=== PATIENT | male | born 1955 | race Caucasian/White ===

== ENCOUNTER 2020-05-28 06:49 | Outpatient (REF) | payer MEDICARE, SELFPAY | END 2020-05-28 06:50 | disposition home or self-care (01) | LOC: HO.LAB 06:49 | PROVIDERS: Visit Provider Internal Medicine | DX: Z20.828 Contact with and (suspected) exposure to other viral communicable diseases (principal) | CPT/HCPCS: C9803; U0003 ==

== ENCOUNTER 2020-09-24 08:22 | Emergency (ER) | payer MEDICARE, SELFPAY ==
--- NOTE | ~2020-09-24 | CT_ITS ---
EXAMINATION: CT ABDOMEN AND PELVIS WITHOUT CONTRAST CLINICAL INFORMATION: Gross hematuria and abdominal pain COMPARISON: None TECHNIQUE: Multidetector volumetric imaging was performed from the superior aspect of the liver through the pubic symphysis. Sagittal and coronal reformatted images were obtained on the technologist's workstation. This CT examination was performed using dose optimization techniques as appropriate, variously including the following: *Automated exposure control *Adjustment of mA and/or kV according to patient size (this includes techniques or standardized protocols for targeted exams where dose is matched to indication/reason for exam; i.e. extremities or head) *Use of iterative reconstruction technique DLP: 402 mGy-cm FINDINGS: LUNG BASES: The visualized lung bases are unremarkable. LIVER, GALLBLADDER, AND BILIARY TREE: The liver is normal in size, shape, and attenuation. There is a 8 mm low-attenuation lesion in the posterior segment of the right lobe of the liver axial image 19 series 3. This is difficult due to small size and lack of contrast. No other focal hepatic lesion or biliary ductal dilatation is present. The gallbladder is unremarkable with no evidence of radiopaque gallstones, gallbladder wall thickening, or obvious pericholecystic inflammatory changes. PANCREAS: Unremarkable. SPLEEN: There are calcifications in the spleen suggestive of old granulomatous disease. ADRENAL GLANDS: Unremarkable. KIDNEYS AND URETERS: The kidneys are normal in size, shape, and attenuation. No hydronephrosis, hydroureter, or calculi seen. There is slight abnormal contour to the posterior mid pole of the left kidney. This is slightly high in attenuation for example axial image 29 series 3 and sagittal reconstructed image 24. No perinephric stranding. BLADDER: The prostate gland is enlarged and protrudes into the base of the bladder. The bladder is otherwise unremarkable. GASTROINTESTINAL TRACT: The small and large bowel are unremarkable. The appendix is unremarkable. ABDOMINAL WALL: No significant hernia is appreciated. LYMPH NODES: Normal. VASCULAR: Unremarkable. PELVIC VISCERA: The prostate gland is enlarged and protrudes into the base of the bladder. The prostate gland measures 4.5 x 5.5 cm in AP and transverse dimension. OSSEOUS STRUCTURES: There are degenerative changes of the spine. There is small nonspecific bone lesions, largest measuring 8 mm in the left side of the sacrum. CT/CT abdomen pelvis wo con IMPRESSION: Enlarged prostate gland that protrudes into the base of the bladder. No renal or ureteral stone seen. Slight abnormal contour and increased attenuation in the posterior mid pole of the left kidney. This could be better evaluated with CT or MRI with and without contrast if clinically indicated. Small liver lesion difficult to characterize due to small size and lack of IV contrast..
[2020-09-24 08:44] VITALS: BP 140/84; PULSE 58; RESP 16; TEMP 36.1; O2SAT 100; BMI 22.1
[2020-09-24 09:19] LABS: Glucose Urine UA NEG (NEG); Leukocyte Esterase Urine NEG (NEG); Nitrite Urine NEG (NEG); Specific Gravity - Urine 1.025 (1.005-1.025); Urine Blood 2+ (NEG); Urine Ketones NEG (NEG); Urine Protein NEG (NEG-TRACE)
[2020-09-24 09:30] LABS: Appearance Urine CLEAR; Color Urine YELLOW
[2020-09-24 09:36] LABS: Mucus Urine 1+ /LPF; Squamous Epithelial Cell Urine 1+ /LPF; WBC Urine 0 /HPF (0-4)
--- NOTE | 2020-09-24 10:00 | ECG_ITS ---
Test Reason : BRADYCARDIA Blood Pressure : / mmHG Vent. Rate : 049 BPM Atrial Rate : 049 BPM P-R Int : 142 ms QRS Dur : 090 ms QT Int : 464 ms P-R-T Axes : 064 012 043 degrees QTc Int : 419 ms Sinus bradycardia with Premature atrial complexes Possible Left atrial enlargement Borderline ECG No previous ECGs available Referred By: Pauly Kelsey Electronically Signed By:TAMY NORMAN MD
--- NOTE | 2020-09-24 10:07 | ED.MALEGU ---
HPI - Male Genitourinary General Chief complaint: Urogenital-Male <CASEY Sosa - Last Filed: 09/24/20 13:55> Stated complaint: blood in urine <CASEY Sosa Last Filed: 09/24/20 13:55> Time Seen by Provider: 09/24/20 09:45 <CASEY Sosa - Last Filed: 09/24/20 13:55> Source: patient <CASEY Sosa Last Filed: 09/24/20 13:55> Mode of arrival: ambulatory <CASEY Sosa Last Filed: 09/24/20 13:55> Limitations: no limitations <CASEY Sosa Last Filed: 09/24/20 13:55> History of Present Illness HPI Narrative: 65 y/o male with no significant medical history presents with 4 days of hematuria. He reports it is mostly painfree but at times is uncomfortable to pass his urine. He admits to increased urinary frequency and passing some small clots. He has some intermittent lower abdominal discomfort. No back pain, no fever, no chills. He is not on anticoagulation and he has never had this before. He is a never smoker. <CASEY Sosa - Last Filed: 09/24/20 13:55> MD Complaint: other (hematuria) <CASEY Sosa - Last Filed: 09/24/20 13:55> Onset (ago): day(s) (4) <CASEY Sosa Last Filed: 09/24/20 13:55> Duration: constant <CASEY Sosa Last Filed: 09/24/20 13:55> Location: abdomen (lower ) <CASEY Sosa Last Filed: 09/24/20 13:55> Severity: moderate <CASEY Sosa Last Filed: 09/24/20 13:55> Quality: aching <CASEY Sosa Last Filed: 09/24/20 13:55> Relieving factors: none <CASEY Sosa Last Filed: 09/24/20 13:55> Exacerbating factors: urination <CASEY Sosa Last Filed: 09/24/20 13:55> Associated symptoms: Reports blood in urine <CASEY Sosa Last Filed: 09/24/20 13:55> Related Data Sexually active: No <CASEY Sosa Last Filed: 09/24/20 13:55> Home medications: Previous Rx's Medication Instructions Recorded nitrofurantoin monohyd/m-cryst 100 mg PO BID 7 Days #14 cap 09/24/20 [Macrobid] <CASEY Sosa Last Filed: 09/24/20 13:55> Allergies/Adverse reactions: Allergies Allergy/AdvReac Type Severity Reaction Status Date / Time No Known Allergies Allergy Verified 09/24/20 08:48 [No Known Allergies*] <CASEY Sosa Last Filed: 09/24/20 13:55> Review of Systems Review of Systems: Constitutional: No Fever, No Chills Cardiovascular: No Chest Pain, No SOB, No Orthopnea, No Edema Respiratory: No Cough, No Sputum, No Wheezing, No dyspnea Gastrointestinal: No Nausea, No Vomiting, No Diarrhea, + abdominal Pain, No Hematochezia, No Melena Genitourinary: No Dysuria, + Urinary Frequency, + Hematuria Musculoskeletal: No joint pain, No Myalgias Skin: No Skin Lesions, No rash Neuro: No Weakness, No Numbness, No Dizziness, No Headache Psych: No Anxiety/Panic, No Depression Heme/Lymph: No Bruising, No Lymphadenopathy Endocrine: No Polyuria, No Polydipsia <CASEY Sosa Last Filed: 09/24/20 13:55> [facility] Past Medical History Medical History: Medical History (Updated 09/25/20 @ 00:01 by Kristal Manuel) Stroke due to embolism <CASEY Sosa Last Filed: 09/24/20 13:55> Surgical History: Surgical History (Updated 09/24/20 @ 08:47 by Lilly Zaman) Hx of brain surgery <CASEY Sosa Last Filed: 09/24/20 13:55> Physical Exam Vital Signs: Vital Signs: Last Vital Signs Temp 98.3 F 09/24/20 12:00 Pulse 74 09/24/20 12:00 Resp 18 09/24/20 12:00 BP 139/68 09/24/20 12:00 Pulse Ox 98 09/24/20 12:00 Body Mass Index 22.1 Appearance: Alert. Oriented X3. No acute distress. Eyes: Pupils equal, round and reactive to light. ENT: Pharynx normal. Neck: Normal inspection. Neck supple. CVS: Bradycardic, regular rhythm. Pulses normal. Respiratory: No respiratory distress. Breath sounds normal. Abdomen: Soft with mild suprapubic tenderness. +BS x4 Skin: Skin warm and dry. Normal skin color. Normal skin turgor. No rashes. Extremities: No lower extremity edema. Neuro: Oriented X 3. No motor deficit. No sensory deficit. <CASEY Sosa - Last Filed: 09/24/20 13:55> Vital Signs: Last Vital Signs Temp 98.3 F 09/24/20 12:00 Pulse 74 09/24/20 12:00 Resp 18 09/24/20 12:00 BP 139/68 09/24/20 12:00 Pulse Ox 98 09/24/20 12:00 Body Mass Index 22.1 <Cam Medrano MD - Last Filed: 10/09/20 07:30> Course Course Course Narrative: 65 y/o male presenting with hematuria x4 days. No medical history. Low suspicion for kidney stones given lack of pain. Mild dysuria occasionally is consistent with UTI. UA negative for gross infection. He has some tenderness on examination. His urine is cloudy but no gross hematuria or clots. Will get labs and CT scan for further evaluation. HR 40's when placed on the monitor - sinus bradycardic with PACs. patient is asymptomatic with stable blood pressures. <CASEY Sosa - Last Filed: 09/24/20 13:55> I have reviewed the chart <Cam Medrano MD - Last Filed: 10/09/20 07:30> Reevaluation(s) Reevaluation #1: Labs are unremarkable. Urine showing blood but no obvious infection. CT scan pending. <CASEY Sosa - Last Filed: 09/24/20 13:55> Reevaluation #2: CT scan showing enlarged prostate protruding into the bladder. No kidney stones. Abnormal coutour of mid pole of left kidney. Rec MRI vs CT w/wout contrast, this can be done as an outpatient. Will treat for cystitis and refer to Urology for further management. Patient agreeable with plan. Stable for discharge. <CASEY Sosa - Last Filed: 09/24/20 13:55> MDM - Male Genitourinary Lab Data Attestation: I reviewed the patient's lab results. <CASEY Sosa - Last Filed: 09/24/20 13:55> Result diagrams: : 09/24/20 10:31 09/24/20 10:31 <CASEY Sosa - Last Filed: 09/24/20 13:55> Labs: Lab Results 09/24/20 09/24/20 09/24/20 Range/Units 09:07 10:31 10:31 WBC 6.1 (4.8-10.8) X10*3/uL RBC 5.12 (4.60-5.80) X10*6/uL Hgb 14.8 (14.0-18.0) g/dl Hct 45.7 (42-52) % MCV 89.3 (80-98) fL MCH 28.9 (27.0-33.0) pg MCHC 32.4 (31.0-36.0) g/dl RDW 13.2 (11.0-16.0) % Plt Count 312 (160-400) X10*3/uL MPV 9.3 L (9.4-12.4) fL Immature Gran % (Auto) 0.2 (0.0-0.4) % Neut % (Auto) 51.8 (45-73) % Lymph % (Auto) 39.0 (20-40) % [place] % (Auto) 6.9 (2-11) % Eos % (Auto) 1.3 (0-4) % Baso % (Auto) 0.8 (0-2) % Lymph # (Auto) 2.4 (1.2-4.9) X10*3/uL [place] # (Auto) 0.4 (0.1-1.2) X10*3/uL Eos # (Auto) 0.1 (0.0-0.4) X10*3/uL Baso # (Auto) 0.1 (0.0-0.2) X10*3/uL Abs Immat Gran (auto) 0.01 (0.00-0.03) X10*3/uL Absolute Neuts (auto) 3.2 (2.0-8.3) X10*3/uL Absolute Nucleated RBC 0.000 (0.0-0.012) X10*3/uL Nucleated RBC % (auto) 0.0 (0.0-0.2) /100WBC PT 12.2 (10.8-13.0) SEC INR 1.0 (0.9-1.1) APTT 33.9 (24.1-38.0) SEC Sodium (135-145) mmol/L Potassium (3.3-5.1) mmol/L Chloride (96-108) mmol/L Carbon Dioxide (22-29) mmol/L Anion Gap (12-20) BUN (9-16) mg/dL Creatinine (0.5-1.4) mg/dL Estim Creat Clear Calc Estimated GFR Random Glucose (60-115) mg/dL Calcium (8.4-10.2) mg/dL Magnesium (1.6-2.6) mg/dL Total Bilirubin (0.0-1.0) mg/dL Direct Bilirubin (0.0-0.5) mg/dL AST (5-37) U/L ALT (0-40) U/L Alkaline Phosphatase (39-117) U/L Total Protein (6.5-8.0) g/dL Albumin (3.5-5.0) g/dL Urine Color YELLOW Urine Appearance CLEAR Urine pH 6.0 (5.0-8.0) Ur Specific [place] 1.025 (1.005-1.025) Urine Protein NEG (NEG-TRACE) MG/DL Urine Glucose (UA) NEG (NEG) MG/DL Urine Ketones NEG (NEG) MG/DL Urine Blood 2+ H (NEG) Urine Nitrite NEG (NEG) Ur Leukocyte Esterase NEG (NEG) Urine RBC 10-14 H (0) /HPF Urine WBC 0 (0-4) /HPF Ur Squamous Epith Cells 1+ /LPF Urine Bacteria NONE /LPF Urine Mucus 1+ /LPF 09/24/20 Range/Units 10:31 WBC (4.8-10.8) X10*3/uL RBC (4.60-5.80) X10*6/uL Hgb (14.0-18.0) g/dl Hct (42-52) % MCV (80-98) fL MCH (27.0-33.0) pg MCHC (31.0-36.0) g/dl RDW (11.0-16.0) % Plt Count (160-400) X10*3/uL MPV (9.4-12.4) fL Immature Gran % (Auto) (0.0-0.4) % Neut % (Auto) (45-73) % Lymph % (Auto) (20-40) % [place] % (Auto) (2-11) % Eos % (Auto) (0-4) % Baso % (Auto) (0-2) % Lymph # (Auto) (1.2-4.9) X10*3/uL [place] # (Auto) (0.1-1.2) X10*3/uL Eos # (Auto) (0.0-0.4) X10*3/uL Baso # (Auto) (0.0-0.2) X10*3/uL Abs Immat Gran (auto) (0.00-0.03) X10*3/uL Absolute Neuts (auto) (2.0-8.3) X10*3/uL Absolute Nucleated RBC (0.0-0.012) X10*3/uL Nucleated RBC % (auto) (0.0-0.2) /100WBC PT (10.8-13.0) SEC INR (0.9-1.1) APTT (24.1-38.0) SEC Sodium 140 (135-145) mmol/L Potassium 5.2 H (3.3-5.1) mmol/L Chloride 108 (96-108) mmol/L Carbon Dioxide 27 (22-29) mmol/L Anion Gap 10 L (12-20) BUN 14 (9-16) mg/dL Creatinine 0.92 (0.5-1.4) mg/dL Estim Creat Clear Calc 74.9 Estimated GFR > 60 Random Glucose 96 (60-115) mg/dL Calcium 9.2 (8.4-10.2) mg/dL Magnesium 2.3 (1.6-2.6) mg/dL Total Bilirubin 0.8 (0.0-1.0) mg/dL Direct Bilirubin 0.3 (0.0-0.5) mg/dL AST 22 (5-37) U/L ALT 20 (0-40) U/L Alkaline Phosphatase 76 (39-117) U/L Total Protein 7.0 (6.5-8.0) g/dL Albumin 4.1 (3.5-5.0) g/dL Urine Color Urine Appearance Urine pH (5.0-8.0) Ur Specific [place] (1.005-1.025) Urine Protein (NEG-TRACE) MG/DL Urine Glucose (UA) (NEG) MG/DL Urine Ketones (NEG) MG/DL Urine Blood (NEG) Urine Nitrite (NEG) Ur Leukocyte Esterase (NEG) Urine RBC (0) /HPF Urine WBC (0-4) /HPF Ur Squamous Epith Cells /LPF Urine Bacteria /LPF Urine Mucus /LPF <CASEY Sosa - Last Filed: 09/24/20 13:55> Lab Results 09/24/20 09/24/20 09/24/20 Range/Units 09:07 10:31 10:31 WBC 6.1 (4.8-10.8) X10*3/uL RBC 5.12 (4.60-5.80) X10*6/uL Hgb 14.8 (14.0-18.0) g/dl Hct 45.7 (42-52) % MCV 89.3 (80-98) fL MCH 28.9 (27.0-33.0) pg MCHC 32.4 (31.0-36.0) g/dl RDW 13.2 (11.0-16.0) % Plt Count 312 (160-400) X10*3/uL MPV 9.3 L (9.4-12.4) fL Immature Gran % (Auto) 0.2 (0.0-0.4) % Neut % (Auto) 51.8 (45-73) % Lymph % (Auto) 39.0 (20-40) % [place] % (Auto) 6.9 (2-11) % Eos % (Auto) 1.3 (0-4) % Baso % (Auto) 0.8 (0-2) % Lymph # (Auto) 2.4 (1.2-4.9) X10*3/uL [place] # (Auto) 0.4 (0.1-1.2) X10*3/uL Eos # (Auto) 0.1 (0.0-0.4) X10*3/uL Baso # (Auto) 0.1 (0.0-0.2) X10*3/uL Abs Immat Gran (auto) 0.01 (0.00-0.03) X10*3/uL Absolute Neuts (auto) 3.2 (2.0-8.3) X10*3/uL Absolute Nucleated RBC 0.000 (0.0-0.012) X10*3/uL Nucleated RBC % (auto) 0.0 (0.0-0.2) /100WBC PT 12.2 (10.8-13.0) SEC INR 1.0 (0.9-1.1) APTT 33.9 (24.1-38.0) SEC Sodium (135-145) mmol/L Potassium (3.3-5.1) mmol/L Chloride (96-108) mmol/L Carbon Dioxide (22-29) mmol/L Anion Gap (12-20) BUN (9-16) mg/dL Creatinine (0.5-1.4) mg/dL Estim Creat Clear Calc Estimated GFR Random Glucose (60-115) mg/dL Calcium (8.4-10.2) mg/dL Magnesium (1.6-2.6) mg/dL Total Bilirubin (0.0-1.0) mg/dL Direct Bilirubin (0.0-0.5) mg/dL AST (5-37) U/L ALT (0-40) U/L Alkaline Phosphatase (39-117) U/L Total Protein (6.5-8.0) g/dL Albumin (3.5-5.0) g/dL Urine Color YELLOW Urine Appearance CLEAR Urine pH 6.0 (5.0-8.0) Ur Specific [place] 1.025 (1.005-1.025) Urine Protein NEG (NEG-TRACE) MG/DL Urine Glucose (UA) NEG (NEG) MG/DL Urine Ketones NEG (NEG) MG/DL Urine Blood 2+ H (NEG) Urine Nitrite NEG (NEG) Ur Leukocyte Esterase NEG (NEG) Urine RBC 10-14 H (0) /HPF Urine WBC 0 (0-4) /HPF Ur Squamous Epith Cells 1+ /LPF Urine Bacteria NONE /LPF Urine Mucus 1+ /LPF 09/24/20 Range/Units 10:31 WBC (4.8-10.8) X10*3/uL RBC (4.60-5.80) X10*6/uL Hgb (14.0-18.0) g/dl Hct (42-52) % MCV (80-98) fL MCH (27.0-33.0) pg MCHC (31.0-36.0) g/dl RDW (11.0-16.0) % Plt Count (160-400) X10*3/uL MPV (9.4-12.4) fL Immature Gran % (Auto) (0.0-0.4) % Neut % (Auto) (45-73) % Lymph % (Auto) (20-40) % [place] % (Auto) (2-11) % Eos % (Auto) (0-4) % Baso % (Auto) (0-2) % Lymph # (Auto) (1.2-4.9) X10*3/uL [place] # (Auto) (0.1-1.2) X10*3/uL Eos # (Auto) (0.0-0.4) X10*3/uL Baso # (Auto) (0.0-0.2) X10*3/uL Abs Immat Gran (auto) (0.00-0.03) X10*3/uL Absolute Neuts (auto) (2.0-8.3) X10*3/uL Absolute Nucleated RBC (0.0-0.012) X10*3/uL Nucleated RBC % (auto) (0.0-0.2) /100WBC PT (10.8-13.0) SEC INR (0.9-1.1) APTT (24.1-38.0) SEC Sodium 140 (135-145) mmol/L Potassium 5.2 H (3.3-5.1) mmol/L Chloride 108 (96-108) mmol/L Carbon Dioxide 27 (22-29) mmol/L Anion Gap 10 L (12-20) BUN 14 (9-16) mg/dL Creatinine 0.92 (0.5-1.4) mg/dL Estim Creat Clear Calc 74.9 Estimated GFR > 60 Random Glucose 96 (60-115) mg/dL Calcium 9.2 (8.4-10.2) mg/dL Magnesium 2.3 (1.6-2.6) mg/dL Total Bilirubin 0.8 (0.0-1.0) mg/dL Direct Bilirubin 0.3 (0.0-0.5) mg/dL AST 22 (5-37) U/L ALT 20 (0-40) U/L Alkaline Phosphatase 76 (39-117) U/L Total Protein 7.0 (6.5-8.0) g/dL Albumin 4.1 (3.5-5.0) g/dL Urine Color Urine Appearance Urine pH (5.0-8.0) Ur Specific [place] (1.005-1.025) Urine Protein (NEG-TRACE) MG/DL Urine Glucose (UA) (NEG) MG/DL Urine Ketones (NEG) MG/DL Urine Blood (NEG) Urine Nitrite (NEG) Ur Leukocyte Esterase (NEG) Urine RBC (0) /HPF Urine WBC (0-4) /HPF Ur Squamous Epith Cells /LPF Urine Bacteria /LPF Urine Mucus /LPF <Cam Medrano MD - Last Filed: 10/09/20 07:30> ECG Data Attestation: I personally reviewed and interpreted this ECG as follows: <CASEY Sosa - Last Filed: 09/24/20 13:55> ECG interpretation date: 09/24/20 <CASEY Sosa - Last Filed: 09/24/20 13:55> ECG interpretation time: 12:53 <CASEY Sosa - Last Filed: 09/24/20 13:55> Interpretation: sinus bradycardia with premature atrial complexes, HR 49 bpm, normal SC Interval, normal QTc <CASEY Sosa - Last Filed: 09/24/20 13:55> Discharge Plan Discharge Clinical Impression: Cystitis, Enlarged prostate <CASEY Sosa - Last Filed: 09/24/20 13:55> Patient Disposition: Home, Self-Care <CASEY Sosa - Last Filed: 09/24/20 13:55> Instructions: Interstitial Cystitis (ED) <CASEY Sosa - Last Filed: 09/24/20 13:55> Additional Instructions: Your urine test showed blood in your urine which is consistent with inflammation of your bladder. Your lab workup was unremarkable. Your CT scan showed an enlarged prostate and abnormal contour of your left kidney. You will need follow up with Urology for these issues. Your may require further imaging in the future. Take the prescribed antibiotic as directed for 1 week to help treat the inflammation of your bladder. If you have worsening symptoms or develop inability to urinate or any other concerning symptom come back to the ER for further evaluation. <CASEY Sosa - Last Filed: 09/24/20 13:55> Prescriptions: New nitrofurantoin monohyd/m-cryst [Macrobid] 100 mg capsule 100 mg PO BID 7 Days Qty: 14 RF: 0 <CASEY Sosa - Last Filed: 09/24/20 13:55> Referrals: Andrea Rodriguez MD [Physician] - 2 days (enlarged prostate, hematuria) <CASEY Sosa - Last Filed: 09/24/20 13:55> Interventions: ED Discharge Assessment Last Done: 09/24/20 13:17 <CASEY Sosa - Last Filed: 09/24/20 13:55> Discharge Date/Time: 09/24/20 13:18 <CASEY Sosa - Last Filed: 09/24/20 13:55> Print Language: Kazakh <CASEY Sosa - Last Filed: 09/24/20 13:55>
[2020-09-24] MEDS: 0.9 % Sodium Chloride 1,000 ML 999 ML IVCONT (10:50)
[2020-09-24 11:06] LABS: MANUAL DIFF FLAG NO
[2020-09-24 11:08] LABS: Basophils Absolute Auto 0.1 X10*3/uL (0.0-0.2); Basophils Percent Auto 0.8 % (0-2); Eosinophils Absolute Auto 0.1 X10*3/uL (0.0-0.4); Eosinophils Percent Auto 1.3 % (0-4); Hematocrit 45.7 % (42-52); Hemoglobin 14.8 g/dl (14.0-18.0); Imm Gran Abs Auto 0.01 X10*3/uL (0.00-0.03); Imm Gran Pct Auto 0.2 % (0.0-0.4); Lymphocytes Absolute Auto 2.4 X10*3/uL (1.2-4.9); Mean Corpuscular HGB Conc 32.4 g/dl (31.0-36.0); Mean Corpuscular Hemoglobin 28.9 pg (27.0-33.0); Mean Corpuscular Volume 89.3 fL (80-98); Mean Platelet Volume 9.3 fL (9.4-12.4); Monocytes Absolute Auto 0.4 X10*3/uL (0.1-1.2); Monocytes Percent Auto 6.9 % (2-11); Neutrophils Absolute Auto 3.2 X10*3/uL (2.0-8.3); Neutrophils Percent Auto 51.8 % (45-73); Platelet Count 312 X10*3/uL (160-400); Red Blood Count 5.12 X10*6/uL (4.60-5.80); Red Cell Distribution Width 13.2 % (11.0-16.0); White Blood Count 6.1 X10*3/uL (4.8-10.8)
[2020-09-24 11:16] LABS: Prothrombin Time 12.2 SEC (10.8-13.0)
[2020-09-24 11:19] LABS: Partial Thromboplastin Time 33.9 SEC (24.1-38.0)
[2020-09-24 11:38] LABS: Alanine Aminotransferase 20 U/L (0-40); Albumin Level 4.1 g/dL (3.5-5.0); Alkaline Phosphatase 76 U/L (39-117); Anion Gap 10 (12-20); Aspartate Amino Transferase 22 U/L (5-37); Bilirubin Direct 0.3 mg/dL (0.0-0.5); Bilirubin Total 0.8 mg/dL (0.0-1.0); Blood Urea Nitrogen 14 mg/dL (9-16); Calcium 9.2 mg/dL (8.4-10.2); Carbon Dioxide 27 mmol/L (22-29); Chloride 108 mmol/L (96-108); Creatinine Clr Calc Pharmacy 74.9; Estimated Glomerular Filt Rate > 60; Glucose Random 96 mg/dL (60-115); Magnesium 2.3 mg/dL (1.6-2.6); Potassium 5.2 mmol/L (3.3-5.1); Sodium 140 mmol/L (135-145)
[2020-09-24 12:00] VITALS: BP 139/68; PULSE 74; RESP 18; TEMP 36.8; O2SAT 98
== END 2020-09-24 13:18 | disposition home or self-care (01) ==
PROVIDERS: Physician Assistant; Emergency Provider Emergency Medicine; PCP Internal Medicine
DX: N30.11 Interstitial cystitis (chronic) with hematuria (principal); N40.1 Benign prostatic hyperplasia with lower urinary tract symptoms; Z86.73 Personal history of transient ischemic attack (TIA), and cerebral infarction without residual deficits
CPT/HCPCS: 36415; 51798; 74176; 80048; 80076; 81001; 83735; 85025; 85610; 85730; 93005; 96360; 99284

== ENCOUNTER 2020-10-18 15:14 | Outpatient (REF) | payer MEDICARE, SELFPAY | END 2020-10-18 15:15 | disposition home or self-care (01) | LOC: HO.LAB 15:14 | PROVIDERS: Visit Provider Internal Medicine | DX: Z20.822 Contact with and (suspected) exposure to COVID-19 (principal) | CPT/HCPCS: C9803; U0003; U0005 ==

== ENCOUNTER 2020-10-22 06:17 | Outpatient (REF) | payer MEDICARE, SELFPAY ==
[2020-10-22 08:45] LABS: Alanine Aminotransferase 15 U/L (0-40); Albumin Level 4.1 g/dL (3.5-5.0); Alkaline Phosphatase 78 U/L (39-117); Anion Gap 10 (12-20); Aspartate Amino Transferase 18 U/L (5-37); Bilirubin Total 0.5 mg/dL (0.0-1.0); Blood Urea Nitrogen 18 mg/dL (9-16); Calcium 8.9 mg/dL (8.4-10.2); Carbon Dioxide 28 mmol/L (22-29); Chloride 108 mmol/L (96-108); Cholesterol 195 mg/dL; Estimated Glomerular Filt Rate > 60; Glucose Random 98 mg/dL (60-115); HDL Cholesterol 40 mg/dL; LDL Cholesterol Calculated 140 mg/dl; Potassium 4.4 mmol/L (3.3-5.1); Sodium 142 mmol/L (135-145); Total Protein 6.8 g/dL (6.5-8.0); Triglycerides 77 mg/dL
== END 2020-10-22 06:18 | disposition home or self-care (01) ==
LOC: HO.LAB 06:17
PROVIDERS: PCP Internal Medicine; Visit Provider Internal Medicine
DX: G40.909 Epilepsy, unspecified, not intractable, without status epilepticus (principal); I10 Essential (primary) hypertension; I62.00 Nontraumatic subdural hemorrhage, unspecified; K59.00 Constipation, unspecified; M25.562 Pain in left knee; M25.542 Pain in joints of left hand; M25.541 Pain in joints of right hand; Z86.79 Personal history of other diseases of the circulatory system
CPT/HCPCS: 36415; 80053; 80061

== ENCOUNTER → 2020-11-01 10:38 | Outpatient (BNVA) | payer MEDICARE, SELFPAY | PROVIDERS: PCP Internal Medicine; Visit Provider Urology | DX: N40.1 Benign prostatic hyperplasia with lower urinary tract symptoms (principal); N13.8 Other obstructive and reflux uropathy; N39.0 Urinary tract infection, site not specified; R39.12 Poor urinary stream | CPT/HCPCS: 81002; 99202 ==

== ENCOUNTER → 2020-12-19 13:22 | Outpatient (BNVA) | payer MEDICARE, SELFPAY | PROVIDERS: PCP Internal Medicine; Visit Provider Urology | DX: N39.0 Urinary tract infection, site not specified (principal); N40.1 Benign prostatic hyperplasia with lower urinary tract symptoms; N13.8 Other obstructive and reflux uropathy; R39.12 Poor urinary stream | CPT/HCPCS: 51798; 99212 ==

== ENCOUNTER 2021-06-06 14:45 | Outpatient (REF) | payer MEDICARE, SELFPAY ==
[2021-06-06 15:24] LABS: COVID-19 Test Negative (Negative)
== END 2021-06-06 14:46 | disposition home or self-care (01) ==
LOC: HO.LAB 14:45
PROVIDERS: Visit Provider Internal Medicine
DX: Z20.822 Contact with and (suspected) exposure to COVID-19 (principal)
CPT/HCPCS: 36415; 87635; C9803

== ENCOUNTER 2021-06-18 06:23 | Outpatient (REF) | payer MEDICARE, SELFPAY ==
[2021-06-18 08:33] LABS: PSA,Total (Free>4and<10) 1.59 ng/mL (0.00-4.00)
== END 2021-06-18 06:24 | disposition home or self-care (01) ==
LOC: HO.LAB 06:23
PROVIDERS: PCP Internal Medicine; Visit Provider Urology
DX: Z12.5 Encounter for screening for malignant neoplasm of prostate (principal); N40.1 Benign prostatic hyperplasia with lower urinary tract symptoms; N13.8 Other obstructive and reflux uropathy
CPT/HCPCS: 36415; 84153

== ENCOUNTER → 2021-06-26 08:24 | Outpatient (BNVA) | payer MEDICARE, SELFPAY | PROVIDERS: PCP Internal Medicine; Visit Provider Urology | DX: N40.1 Benign prostatic hyperplasia with lower urinary tract symptoms (principal); N13.8 Other obstructive and reflux uropathy; R39.12 Poor urinary stream | CPT/HCPCS: 99212 ==

== ENCOUNTER 2021-08-20 06:48 | Outpatient (REF) | payer MEDICARE, SELFPAY ==
[2021-08-20 07:47] LABS: Alanine Aminotransferase 15 U/L (0-40); Albumin Level 4.2 g/dL (3.5-5.0); Alkaline Phosphatase 79 U/L (39-117); Anion Gap 11 (12-20); Aspartate Amino Transferase 18 U/L (5-37); Bilirubin Total 0.6 mg/dL (0.0-1.0); Blood Urea Nitrogen 20 mg/dL (9-16); Calcium 9.5 mg/dL (8.4-10.2); Carbon Dioxide 27 mmol/L (22-29); Chloride 106 mmol/L (96-108); Cholesterol 219 mg/dL; Estimated Glomerular Filt Rate > 60; Glucose Random 100 mg/dL (60-115); HDL Cholesterol 41 mg/dL; LDL Cholesterol Calculated 162 mg/dl; Sodium 139 mmol/L (135-145); Total Protein 7.3 g/dL (6.5-8.0); Triglycerides 84 mg/dL
[2021-08-20 08:13] LABS: Prostate Specific Antigen Scr 2.75 ng/mL (<0.05-4.0)
[2021-08-20 08:25] LABS: Reflex LDLD? No
== END 2021-08-20 06:49 | disposition home or self-care (01) ==
LOC: HO.LAB 06:48
PROVIDERS: PCP Internal Medicine; Visit Provider Internal Medicine
DX: Z12.5 Encounter for screening for malignant neoplasm of prostate (principal); I10 Essential (primary) hypertension; N40.1 Benign prostatic hyperplasia with lower urinary tract symptoms; M25.569 Pain in unspecified knee; Z86.79 Personal history of other diseases of the circulatory system
CPT/HCPCS: 36415; 80053; 80061; 84153

== ENCOUNTER → 2022-06-26 08:24 | Outpatient (BNVA) | payer OTHER, SELFPAY | PROVIDERS: PCP Internal Medicine; Visit Provider Urology | DX: N39.0 Urinary tract infection, site not specified (principal); N40.1 Benign prostatic hyperplasia with lower urinary tract symptoms; N13.8 Other obstructive and reflux uropathy; R39.12 Poor urinary stream | CPT/HCPCS: 51798; 99212 ==

== ENCOUNTER → 2022-07-25 10:19 | Outpatient (BNVA) | payer OTHER, SELFPAY | PROVIDERS: PCP Internal Medicine; Visit Provider Nurse Practitioner Family | DX: Z01.818 Encounter for other preprocedural examination (principal) | CPT/HCPCS: 99202 ==

== ENCOUNTER 2022-09-08 06:32 | Outpatient (REF) | payer OTHER, SELFPAY ==
[2022-09-08 08:17] LABS: Alanine Aminotransferase 19 U/L (0-40); Albumin Level 3.9 g/dL (3.5-5.0); Alkaline Phosphatase 76 U/L (39-117); Anion Gap 10 (12-20); Aspartate Amino Transferase 20 U/L (5-37); Bilirubin Total 0.9 mg/dL (0.0-1.0); Blood Urea Nitrogen 17 mg/dL (9-16); Calcium 9.1 mg/dL (8.4-10.2); Carbon Dioxide 29 mmol/L (22-29); Chloride 106 mmol/L (96-108); Cholesterol 209 mg/dL; Estimated Glomerular Filt Rate > 60; Glucose Random 92 mg/dL (60-115); HDL Cholesterol 42 mg/dL; LDL Cholesterol Calculated 152 mg/dl; Potassium 4.6 mmol/L (3.3-5.1); Sodium 140 mmol/L (135-145); Total Protein 6.7 g/dL (6.5-8.0); Triglycerides 77 mg/dL
[2022-09-08 08:35] LABS: Prostate Specific Antigen 1.61 ng/mL (<0.05-4.0)
[2022-09-08 08:57] LABS: Estimated Average Glucose 103 mg/dL; Hemoglobin A1c % 5.2 %
[2022-09-08 14:02] LABS: Reflex LDLD? No
== END 2022-09-08 06:33 | disposition home or self-care (01) ==
LOC: HO.LAB 06:32
PROVIDERS: PCP Internal Medicine; Visit Provider Internal Medicine
DX: Z12.5 Encounter for screening for malignant neoplasm of prostate (principal); E78.5 Hyperlipidemia, unspecified; G40.909 Epilepsy, unspecified, not intractable, without status epilepticus; I10 Essential (primary) hypertension; R97.20 Elevated prostate specific antigen [PSA]; R73.9 Hyperglycemia, unspecified
CPT/HCPCS: 36415; 80053; 80061; 83036; 84153

== ENCOUNTER 2023-01-07 07:01 | Outpatient (REF) | payer OTHER, SELFPAY ==
--- NOTE | ~2023-01-07 | XR_ITS ---
EXAMINATION: XR THORACIC SPINE CLINICAL INFORMATION: Pain back COMPARISON: None available. TECHNIQUE: 3 views of the thoracic spine were obtained. FINDINGS: Mild multilevel degenerative changes in the thoracic spine. No thoracic vertebral body compression fractures are appreciated. Visualization of upper thoracic vertebral bodies is limited due to overlying structures. Mild S-shaped thoracolumbar scoliosis. XR/XR thoracic spine 3V IMPRESSION: Mild multilevel degenerative changes in the thoracic spine. Mild S-shaped thoracolumbar scoliosis. Additional imaging with CT scan or MRI should be considered for better visualization as these modalities are much more sensitive for detection of fracture or other underlying pathology.
== END 2023-01-07 07:02 | disposition home or self-care (01) ==
LOC: HO.XRAY 07:01
PROVIDERS: PCP Internal Medicine; Visit Provider Internal Medicine
DX: M54.6 Pain in thoracic spine (principal)
CPT/HCPCS: 72072

== ENCOUNTER 2023-01-09 10:30 | Outpatient (AMB) | payer OTHER, SELFPAY ==
--- NOTE | 2023-01-09 06:54 | MHC.OFFVIS ---
Intake Intake Visit Reasons: follow up Intake Note: Patient presents today for a follow-up on BPH, Patient of Dr Rodriguez: Meds- Tamsulosin & Finasteride Allergies to Antibiotic- No Known Allergies Blood Thinner- None PVR- 53ml Nub Card Tender Required: Yes Nub Card Tender Language: Tool Engineer Name: Zhane Lawson, MYLES/MARCELO SPANI Accompanied by: Nephew or Niece Allergies No Known Allergies [No Known Allergies*] Allergy (Verified 01/09/23 11:04) HPI HPI Comments History of Present Illness Details Art is a 67-year-old male who presents today to the office for a follow up of benign prostatic hyperplasia.? 01/09/2023? He is a Monegasque speaking male. He niece was present during the visit, who interprets for him. He was previously seen by Dr. Rodriguez on 06/26/2022 for lower urinary tract symptoms. He states that he was treated for LUTS secondary to enlarged prostate. He states that he is taking Finasteride 5mg and Tamsulosin 0.4mg. He mentions having pain secondary to voiding, which is ongoing for 2 weeks. He also reports flank pain at this time. He had PSA done on 05/29/2021 showed 1.59, had another PSA on 08/31/2021 which showed 2.75 and most recent PSA done on 09/08/2022 showed 1.61. Evaluation today UA?01/09/2023 ? leucocytes: negative; blood: negative; PVR bladder scan 53mL. Plan: Ordered renal bladder US. Continue taking Finasteride 5mg and Tamsulosin 0.4mg. Prescribed Pyridium 200 mg BID. [facility] Medical History (Updated 02/13/23 @ 10:23 by Nae Davidson RN) Glaucoma High cholesterol History of snoring Palpitations Stroke due to embolism Surgical History (Updated 02/17/23 @ 09:36 by Hiral Suazo RN) H/O colonoscopy Hx of brain surgery Family History Father No problems noted. Mother No problems noted. Social History Alcohol intake: current Alcohol intake frequency: does not drink Patient Tobacco Use Status: Never used Tobacco Review of Systems Const All systems reviewed & are unremarkable except as noted in HPI and below Reports no additional complaints Eyes Reports no additional complaints ENT Reports no additional complaints Card Denies dyspnea Resp Denies cough and Denies dyspnea GI Reports no additional complaints Musc Reports no additional complaints Skin/Breast Denies rash and Denies unusual bruising Neuro Reports no additional complaints Psych Reports no additional complaints Endo Reports no additional complaints Shmuel/Lymph Reports no additional complaints Aller/Immun Reports no additional complaints Physical Exam Const General: healthy appearing, no acute distress and well developed Orientation/consciousness: patient oriented x3 HEENT Head: Yes normocephalic and Yes atraumatic Eyes Conjunctivae: conjunctivae normal Neck Neck: Yes normal visual inspection Chest Chest palpation & inspection: normal inspection of the chest Resp Effort & Inspection: normal respiratory effort Cardio Rate: regular rate GI Inspection: Yes normal to inspection Palpation (GI): Soft to palpation Skin General skin exam: no rashes or lesions noted Neuro General: patient oriented x3 Extrem General: No pedal edema Psych Appearance: grossly normal Affect: normal affect Office Procedures Post Void Residual Post Residual Void Post Void Residual (PVR): 53 [id number] Void Residual by ultrasound Results AMB Urinalysis, Automated UA Leukoctes 0 Megha/uL Last Edit by Zhane Lawson [facility] on 01/09/23 11:11 UA Nitrite Negative Last Edit by Zhane Lawson [facility] on 01/09/23 11:11 UA Urobilinogen 0.2 mg/dL Last Edit by Zhane Lawson [facility] on 01/09/23 11:11 UA Protein 0 mg/dL Last Edit by Zhane Lawson [facility] on 01/09/23 11:11 UA pH 6.0 Last Edit by Zhane Lawson [facility] on 01/09/23 11:11 UA Blood 0 Bharat/uL Last Edit by Zhane Lawson [facility] on 01/09/23 11:11 UA Specific [place] 1.015 Last Edit by Zhane Lawson [facility] on 01/09/23 11:11 UA Ketone Negative Last Edit by Zhane Lawson [facility] on 01/09/23 11:11 UA Bilirubin 0 mg/dL Last Edit by Zhane Lawson [facility] on 01/09/23 11:11 UA Glucose 0 mg/dL Last Edit by MYLES Newton on 01/09/23 11:11 Results Reviewed Results Reviewed: Laboratory Last Values Urine pH (Auto) 6.0 01/09/23 10:59 Specific [place] (Auto) 1.015 01/09/23 10:59 Urine Protein (Auto) 0 mg/dL 01/09/23 10:59 Glucose (UA)(Auto) 0 mg/dL 01/09/23 10:59 Urine Ketones (Auto) Negative 01/09/23 10:59 Urine Blood (Auto) 0 Bharat/uL 01/09/23 10:59 Urine Nitrite (Auto) Negative 01/09/23 10:59 Urine Bilirubin (Auto) 0 mg/dL 01/09/23 10:59 Urine Urobilinogen (Auto) 0.2 mg/dL 01/09/23 10:59 Leukocyte Esterase (Auto) 0 Megha/uL 01/09/23 10:59 Assessment & Plan Assessment & Plan (1) Flank pain: Code(s): R10.9 - Unspecified abdominal pain (2) Dysuria: Code(s): R30.0 - Dysuria (3) BPH w urinary obs/LUTS: Code(s): N40.1 - Benign prostatic hyperplasia with lower urinary tract symptoms; N13.8 - Other obstructive and reflux uropathy Plan Ordered renal bladder US. Continue taking Finasteride 5mg and Tamsulosin 0.4mg. Prescribed Pyridium 200 mg BID Orders: Orders AMB Urinalysis Automated 01/09/23 Z13.9 - Encounter for screening, unspecified AMB Post Void Residual by ultrasound 01/09/23 N39.8 - Other specified disorders of urinary system Medications: New phenazopyridine (Pyridium) 200 mg PO BID PRN 20 tabs 0RF pain with urination Refilled tamsulosin 0.4 mg PO BEDTIME 90 caps 3RF 90 days N40.1 - Benign prostatic hyperplasia with lower urinary tract symptoms, N13.8 - Other obstructive and reflux uropathy finasteride 5 mg PO DAILY 90 tabs 3RF 90 days N40.1 - Benign prostatic hyperplasia with lower urinary tract symptoms, N13.8 - Other obstructive and reflux uropathy, R33.9 - Retention of urine, unspecified Patient Instructions: The patient had an opportunity to ask questions regarding treatment plan. All questions were answered. Imaging, Laboratory studies and physical exam results were discussed and reviewed in detail. No major barriers to understanding were identified. The patient expressed understanding and agreement with the above treatment plan. The patient is aware they should contact our office by phone for worsening of their current condition or the appearance of new symptoms. Compliance is encouraged with any medications and followup testing that is ordered. It is a privilege to be allowed the opportunity to participate in the urologic care of your patient. If you have any questions or concerns regarding treatment for the above conditions please do not hesitate to contact me. The office telephone contact is [phone]. This note is constructed in part using voice recognition software. While every effort has been made to ensure accuracy blocker and cutter contact lens errors may have been included. Yours sincerely, David Stein MD Coding Level of Care Code Est Pt Level 4 (26493) Diagnoses Flank pain R10.9 Dysuria R30.0 BPH w urinary obs/LUTS N40.1; N13.8 CPT Codes Post Residual Void - PVR CPT Code: 54665-Cfpt Void Residual by ultrasound ([id number])
== END 2023-01-09 11:29 | disposition home or self-care (01) ==
PROVIDERS: PCP Internal Medicine; Visit Provider Urology
DX: R10.9 Unspecified abdominal pain (principal); R30.0 Dysuria; N40.1 Benign prostatic hyperplasia with lower urinary tract symptoms; N13.8 Other obstructive and reflux uropathy
CPT/HCPCS: 99214

== ENCOUNTER → 2023-01-09 10:30 | Outpatient (BNVA) | payer OTHER, SELFPAY | PROVIDERS: PCP Internal Medicine; Visit Provider Urology | DX: R30.0 Dysuria (principal); N40.1 Benign prostatic hyperplasia with lower urinary tract symptoms; N13.8 Other obstructive and reflux uropathy; R10.9 Unspecified abdominal pain; Z79.899 Other long term (current) drug therapy | CPT/HCPCS: 51798; 99212 ==

== ENCOUNTER 2023-02-17 08:43 | Day surgery (SDC) | payer OTHER, SELFPAY ==
[2022-12-05 10:39] VITALS: BMI 22.7
--- NOTE | 2023-02-16 12:00 | HO.ANESPROP2 ---
Documented by User: Ayesha Shane NP 02/16/23 12:01 HPI - Anesthesia Eval Consult details Narrative: 67yo M for Colonoscopy Cardiac optimized [facility] Active Problems Active Problems: All Active Problems (Updated 02/13/23 @ 10:23 by Nae Davidson RN) BPH w urinary obs/LUTS (Acute) Complicated urinary tract infection (Acute) Weak urinary stream (Acute) Flank pain (Acute) Dysuria (Acute) Past Medical History Medical History (Updated 02/13/23 @ 10:23 by Nae Davidson RN) Glaucoma High cholesterol History of snoring Palpitations Stroke due to embolism Family History Family History Father No problems noted. Mother No problems noted. Surgical History Surgical History (Updated 02/17/23 @ 09:36 by Hiral Suazo RN) H/O colonoscopy Hx of brain surgery Social History Social History Alcohol intake: current Alcohol intake frequency: does not drink Patient Tobacco Use Status: Never used Tobacco Meds Allergies Allergy/AdvReac Type Severity Reaction Status Date / Time No Known Allergies Allergy Verified 01/09/23 11:04 [No Known Allergies*] Home Medications Medication Instructions Recorded Confirmed Last Taken Type levetiracetam 1,000 mg tablet 1,000 mg PO BID 11/01/20 Unknown History amlodipine 5 mg tablet 5 mg PO DAILY 06/26/22 02/13/23 Unknown History atorvastatin 20 mg tablet 20 mg PO BEDTIME 01/09/23 02/13/23 Unknown History Exam Exam Date and Time: February 16, 2023 1200 Height,Weight and Vital Signs: Height 5 ft 9 in Weight 69.853 kg Narrative Narrative: EKG 06/2022 SR with marked SA Early repolarization No change from 2019 Assessment and Plan Assessment Anesthesia Assessment: Chart Reviewed Documented by User: Moose Mike MD 02/18/23 02:14 HPI - Anesthesia Eval Consult details Narrative: 67yo M for Colonoscopy Seen by cardiology noted to have PACs and sinus arrythymia . As per cardiology no intervention necessary . Cardiac optimized [facility] Past Medical History Medical History (Updated 02/13/23 @ 10:23 by Nae Davidson, RN) Glaucoma High cholesterol History of snoring Palpitations Stroke due to embolism Family History Family History Father No problems noted. Mother No problems noted. Family history of problems with anesthesia: No Surgical History Surgical History (Updated 02/17/23 @ 09:36 by Hiral Suazo RN) H/O colonoscopy Hx of brain surgery History of Problems with Anesthesia: No Social History Social History Alcohol intake: current Alcohol intake frequency: does not drink Patient Tobacco Use Status: Never used Tobacco Meds Allergies Allergy/AdvReac Type Severity Reaction Status Date / Time No Known Allergies Allergy Verified 01/09/23 11:04 [No Known Allergies*] Home Medications Medication Instructions Recorded Confirmed Last Taken Type levetiracetam 1,000 mg tablet 1,000 mg PO BID 11/01/20 Unknown History amlodipine 5 mg tablet 5 mg PO DAILY 06/26/22 02/13/23 Unknown History atorvastatin 20 mg tablet 20 mg PO BEDTIME 01/09/23 02/13/23 Unknown History Exam Airway Mallampati Class: III Loose/Missing/Broken Teeth: Yes Assessment and Plan Assessment Anesthesia Assessment: Anesthesia Plan Discussed Final Anesthetic Review Family History of Problems with Anesthesia: No History of Problems with Anesthesia: No NPO: Yes ASA Class: III Final Preanesthetic Review: Meds/Allgs Chart Reviewed, Consent Obtained/Reviewed and Anes Risks/Benef Reviewed Patient Risk: Intermediate Procedure Risk: Intermediate Anesthetic Plan Anesthetic Plan: MAC: and Agree w/ Assess. and Plan Disposition: Standard PACU
[2023-02-17 09:34] VITALS: BP 138/85; PULSE 57; RESP 16; TEMP 36.7; O2SAT 98
[2023-02-17] MEDS: Lactated Ringers 1,000 ML 100 ML IVCONT (10:02)
--- NOTE | 2023-02-17 10:37 | MHC.SHP ---
Pre-Procedural Eval Section A Date of Service: 02/17/23 Section B Chief Complaint: Encounter for screening for malignant neoplasm Relevant Family History (Specify if Yes): No Relevant Social History: None Present Medications: see Short Stay Collaborative assessment Medical History: Significant History (Glaucoma High cholesterol History of snoring Palpitations Stroke due to embolism) History of Previous Operations: Relevant previous surgery/procedure and date(s) (H/O colonoscopy Hx of brain surgery) Allergies: Allergies Allergy/AdvReac Type Severity Reaction Status Date / Time No Known Allergies Allergy Verified 01/09/23 11:04 [No Known Allergies*] Review of Systems Sugical H&P ROS: Negative: Constitution, Cardiovascular, Respiratory, Neurological, Psychiatric, Hem-Onc, Allergic/Immunologic, Gastrointestinal, Genitourinary, Musculoskeletal, Integumentary, Endocrine and Eyes/Ears/Nose/Throat Exam Surgical H&P Exam: Normal: HEENT, Normal: Heart, Normal: Lungs, Normal: Extremities, Normal: Abdomen, Normal: Skin and Normal: Neurological Plan Diagnosis/Plan: Unchanged I have reviewed the history and physical and performed a pertinent physical examination on my patient. No changes have occurred unless specified. Time Spent With Patient Time: Total time managing care of this patient today ____ minutes.
--- NOTE | 2023-02-17 10:38 | P.OP_ITS ---
Operative Note Operative Note Date of Service: 02/17/23 Narrative: Operative Information Procedure Description: Colonoscopy Indication: screening Anesthesia: MAC COLONOSCOPY Instrument: Olympus variable stiffness pediatric scope 190L Colonoscopy Monitoring: Vital signs and clinical assessment, continuous EKG monitoring, Pulse oximetry, Carbon Dioxide monitoring and blood pressure monitoring were done throughout the procedure. Colon withdrawal time was 8 minutes. Procedure: The patient was placed in the left lateral decubitis position and pre-procedure medications were administered. After a digital rectal examination of the ano-rectum, the video colonoscope was inserted into the rectum and advanced through the colon to the cecum/TI. The colonoscope was slowly withdrawn in a retrograde panoramic fashion and the colon mucosa was carefully examined including a retroflexed view of the rectum. Findings and interventions are described below. Procedure Difficulty: easy Findings: Terminal Ileum-normal Cecum:normal Ascending Colon: normal Transverse Colon -normal Descending Colon:normal Sigmoid Colon: normal Rectum: Retroflexion with small internal hemorrhoids, grade I Anorectum - normal Colon preparation: [place] Bowel Preparation Scale Right colon; 3 Transverse colon: 2 Left colon; 1-2 (0 = Unprepared colon segment with mucosa not seen due to solid stool that cannot be cleared. 1 = Portion of mucosa of the colon segment seen, but other areas of the colon segment not well seen due to staining, residual stool and/or opaque liquid. 2 = Minor amount of residual staining, small fragments of stool and/or opaque liquid, but mucosa of colon segment seen well. 3 = Entire mucosa of colon segment seen well with no residual staining, small fragments of stool or opaque liquid) Impression and Post Procedure Diagnosis: internal hemorrhoids Plan: High fiber diet leaflet Avoid straining at stool, epsom salts and sitz bath, anusol supps or cream Repeat Colonoscopy in 5 years due to fair prep in left colon or earlier if clinically indicated Above findings were reviewed with the patient and relevant handouts were provided if indicated.
[2023-02-17 11:25] VITALS: BP 100/56; PULSE 61; RESP 15; TEMP 36.2; O2SAT 97
[2023-02-17 11:40] VITALS: BP 118/84; PULSE 60; RESP 14; TEMP 36.6; O2SAT 98
[2023-02-17 11:55] VITALS: BP 121/75; PULSE 58; RESP 16; TEMP 36.6; O2SAT 99
== END 2023-02-17 12:31 | disposition home or self-care (01) ==
PROVIDERS: PCP Internal Medicine; Visit Provider Internal Medicine Gastroenterology
PROC: 0DJD8ZZ Inspection of Lower Intestinal Tract, Via Natural or Artificial Opening Endoscopic (ICD-10-PCS; CPT 45378; principal; 2023-02-17 11:00)
DX: Z12.11 Encounter for screening for malignant neoplasm of colon (principal); K64.0 First degree hemorrhoids; R00.2 Palpitations; H40.9 Unspecified glaucoma; E78.00 Pure hypercholesterolemia, unspecified; R06.83 Snoring; Z98.890 Other specified postprocedural states; Z86.73 Personal history of transient ischemic attack (TIA), and cerebral infarction without residual deficits
CPT/HCPCS: G0121

== ENCOUNTER → 2023-02-17 08:43 | Outpatient (BNV) | payer OTHER, SELFPAY | PROVIDERS: PCP Internal Medicine; Visit Provider Internal Medicine Gastroenterology | DX: Z12.11 Encounter for screening for malignant neoplasm of colon (principal); K64.8 Other hemorrhoids | CPT/HCPCS: 45378 ==

== ENCOUNTER 2023-03-03 08:16 | Outpatient (AMB) | payer OTHER, SELFPAY ==
--- NOTE | 2023-03-03 08:21 | MHC.OFFVIS ---
Intake Vital Signs 03/03/23 08:42 Height 5 ft 9 in Weight 155 lb BMI 22.9 BP 122/81 Blood Pressure Location Lt brachial Position Sitting Pulse 66 Intake Visit Reasons: s/p colon Intake Note: Jin presents in the office as a follow up colonoscopy. CC: He states that he not having any concerns just here for the results. Electric Sign Wirer Required: Yes Electric Sign Wirer Name: [id number] Caroline Allergies No Known Allergies [No Known Allergies*] Allergy (Verified 03/03/23 08:43) HPI s/p colon HPI Details LAST VISIT Screen for colon cancer Patient denies any GI, cardiac or respiratory symptoms.? Denies any issues with anesthesia in the past.? Denies any history of sleep apnea.? No history infectious diseases in the past or present.? Not on any anticoagulation therapy.? No family or personal history of colon cancer or polyps.? Reports palpitations, has an appointment with medical i d sales. Currently is wearing Holter monitor. We will call Cardiology for clearance, however patient is not having any chest pain, shortness of breath with or without exertion. Occasional palpitations with activity. Patient denies melena, hematochezia, unintentional weight loss or ribbon like stools.? Discussed at length the pre-procedure,? prep, diet & medications as well as what to expect prior, during and after the procedure.?? Stressed the importance of good bowel prep. ?Recommended the use of Vaseline or Calmoseptine OTC & baby wipes with bowel movements to promote comfort.? ?Patient verbalizes understanding and agrees to plan of care.? He was given the opportunity to ask questions and all questions answered.? We will see him after the procedure.? Plan Medications New bisacodyl (Dulcolax (bisacodyl)) take 2 tabs at noon the day before your colonoscopy 10 mg (2 x 5 mg) PO ONCE 1 day 2 tabs 0RF Z12.11 polyethylene glycol 3350 (Miralax) As directed by gastroenterology department at [facility] 238 grams PO ONCE 238 grams 0RF Z12.11 COLONOSCOPY Findings: Terminal Ileum-normal Cecum:normal Ascending Colon: normal Transverse Colon -normal Descending Colon:normal Sigmoid Colon: normal Rectum: Retroflexion with small internal hemorrhoids, grade I Anorectum - normal Colon preparation: [place] Bowel Preparation Scale Right colon; 3 Transverse colon: 2 Left colon; 1-2 (0 = Unprepared colon segment with mucosa not seen due to solid stool that cannot be cleared. 1 = Portion of mucosa of the colon segment seen, but other areas of the colon segment not well seen due to staining, residual stool and/or opaque liquid. 2 = Minor amount of residual staining, small fragments of stool and/or opaque liquid, but mucosa of colon segment seen well. 3 = Entire mucosa of colon segment seen well with no residual staining, small fragments of stool or opaque liquid) Impression and Post Procedure Diagnosis: internal hemorrhoids Plan: High fiber diet leaflet Avoid straining at stool, epsom salts and sitz bath, anusol supps or cream Repeat Colonoscopy in 5 years due to fair prep in left colon or earlier if clinically indicated TODAY'S VISIT Patient is here today for follow-up and to discuss colonoscopy results. Patient denies any ill effects from the prep, anesthesia or procedure itself. Patient had no polyps, however patient did have suboptimal prep to sigmoid colon. Recommendation was made to return in 5 years. Patient denies any issues with moving his bowels. Patient states that he eliminate his bowels every day. Patient denies any melena, hematochezia, unintentional weight loss or ribbon like stools. Patient denies any dyspepsia, dysphagia or odynophagia. Patient denies any GI concerning symptoms. [facility] Medical History Palpitations Glaucoma High cholesterol History of snoring Stroke due to embolism Surgical History H/O colonoscopy Hx of brain surgery Family History Father No problems noted. Mother No problems noted. Social History Alcohol intake: current Alcohol intake frequency: does not drink Patient Tobacco Use Status: Never used Tobacco Review of Systems Const Denies weight gain and Denies weight loss ENT Reports no additional complaints, Denies dysphagia and Denies odynophagia Card Reports no additional complaints Resp Reports no additional complaints GI Denies abdominal pain, Denies belching, Denies melena, Denies bloating, Denies change in bowel habits, Denies dysphagia, Denies excessive flatus, Denies dyspepsia, Denies heartburn, Denies diarrhea, Denies loose stools, Denies nausea, Denies odynophagia and Denies vomiting Reports no additional complaints Musc Reports no additional complaints Neuro Reports no additional complaints Psych Reports no additional complaints Endo Reports no additional complaints Physical Exam Vital Signs: Last Vital Signs Pulse 66 03/03/23 08:42 BP 122/81 03/03/23 08:42 BMI result Body Mass Index 22.9 Const General: healthy appearing, no acute distress and well developed Nutritional Appearance: well nourished Orientation/consciousness: patient oriented x3 HEENT Head: Yes normal to inspection, Yes normocephalic and Yes atraumatic Face and sinus: Yes normal facial exam Mouth: Normal oral and palatal mucosa present Throat: Yes posterior oropharynx normal, Yes tonsils normal and Yes uvula midline Eyes General: appearance normal, both eyes and all related structures Neck Neck: Yes normal visual inspection, Yes full ROM and Yes trachea midline Thyroid: Thyroid normal Resp Effort & Inspection: normal respiratory effort, able to speak in complete sentences, no tracheal deviation and symmetric chest movement Auscultation: clear to auscultation bilaterally Cardio Rate: regular rate Heart sounds: S1 normal heart sound present and S2 normal heart sound present GI Inspection: Yes normal to inspection and No distended Palpation (GI): Soft to palpation, not firm, nontender and No hepatosplenomegaly present Auscultation: normal bowel sounds General: Yes no CVA tenderness Back/Spine/Pelvis Back: no CVA tenderness Skin General skin exam: elasticity normal, turgor normal and dry skin Neuro General: patient oriented x3 Psych Appearance: grossly normal Mental Status: mental status grossly normal Speech and movement: Normal speech and movement present Assessment & Plan Assessment & Plan (1) Status post colonoscopy: Code(s): Z98.890 - Other specified postprocedural states Plan: No polyps found, however due to suboptimal prep to sigmoid colon patient will return for colorectal screening in 5 years. Patient will follow-up with our office on as needed basis. Patient is agreeable to this plan and verbalizes understanding of instructions. He was given the opportunity to ask questions and all questions answered. Thank you for allowing me to participate in his care Coding Level of Care Code Est Pt Level 3 (31644) Diagnoses Status post colonoscopy Z98.890 Time Spent (min) 25 Comment 15 minutes spent with patient and additional 10 minutes spent reviewing his records
[2023-03-03 08:42] VITALS: BP 122/81; PULSE 66; BMI 22.9
== END 2023-03-03 09:04 | disposition home or self-care (01) ==
PROVIDERS: PCP Internal Medicine; Visit Provider Nurse Practitioner Family
DX: Z98.890 Other specified postprocedural states (principal)
CPT/HCPCS: 99213

== ENCOUNTER → 2023-03-03 08:16 | Outpatient (BNVA) | payer OTHER, SELFPAY | PROVIDERS: PCP Internal Medicine; Visit Provider Nurse Practitioner Family | DX: K64.0 First degree hemorrhoids (principal); Z98.890 Other specified postprocedural states | CPT/HCPCS: 99212 ==

== ENCOUNTER 2023-03-18 13:05 | Outpatient (REF) | payer OTHER, SELFPAY ==
--- NOTE | ~2023-03-18 | US_ITS ---
EXAMINATION: US RETROPERITONEAL COMPLETE (RENAL) CLINICAL INFORMATION: Benign prostatic hyperplasia with lower urinary tract symptoms. COMPARISON: CT abdomen and pelvis without contrast 09/24/2020. TECHNIQUE: Real-time imaging of the kidneys and bladder. FINDINGS: RIGHT KIDNEY: 9.3 x 4.5 x 5.7 cm (SAG x AP x TRV). The kidney is normal in size, contour, and echogenicity. Renal cortical thickness is normal. No calculi or focal parenchymal lesions. No hydronephrosis. LEFT KIDNEY: 9.8 x 5.3 x 6.3 cm (SAG x AP x TRV). The kidney is normal in size, contour, and echogenicity. Renal cortical thickness is normal. No renal calculi or hydronephrosis. 0.9 cm simple cyst in the lower pole. No follow-up imaging is recommended. BLADDER: Mildly trabeculated. Bilateral ureteral jets are demonstrated. Prevoid bladder volume is 111 mL. Postvoid bladder volume is 24.2 mL. The prostate is enlarged measuring 6.7 x 5.5 x 5.7 cm, volume 111 mL. US/US retroperitoneal comp IMPRESSION: Enlarged prostate measuring 111 mL. Mild bladder trabeculation consistent with chronic bladder outlet physiology. No hydronephrosis.
== END 2023-03-18 13:06 | disposition home or self-care (01) ==
LOC: HO.US 13:05
PROVIDERS: Visit Provider Urology
DX: R10.9 Unspecified abdominal pain (principal); N40.1 Benign prostatic hyperplasia with lower urinary tract symptoms; N13.8 Other obstructive and reflux uropathy; N39.0 Urinary tract infection, site not specified; R39.12 Poor urinary stream
CPT/HCPCS: 76770

== ENCOUNTER 2023-03-25 12:50 | Outpatient (AMB) | payer OTHER, SELFPAY ==
--- NOTE | 2023-03-25 12:53 | A.OFFVIS_ITS ---
Intake Intake Visit Reasons: follow up/US Intake Note: Patient presents today for a follow-up on US results: US completed on 03/18/2023 Meds- Pyridium, Tamsulosin & Finasteride Allergies to Antibiotic- No Known Allergies Blood Thinner- None PVR- 0 mL Sales And Leasing Agent Required: Yes Sales And Leasing Agent Language: Key Account Manager Name: MYLES Newton/MARCELO Riley Information Interpreted: non-clinical & clinical Accompanied by: Self / Same As Patient Allergies No Known Allergies [No Known Allergies*] Allergy (Verified 03/25/23 12:54) Medication List - Last Reconciled 03/25/23 by David Stein MD amlodipine 5 mg PO DAILY atorvastatin 20 mg PO BEDTIME finasteride 5 mg PO DAILY 90 days tamsulosin (Flomax) 0.4 mg PO BEDTIME HPI HPI Comments History of Present Illness Details Jin is a 67-year-old male who presents today to the office for a follow-up. 03/25/2023? He is followed today for US results. The patient is a Armenian speaking male. His family member is present and interprets for him. He was last seen by me on 01/09/2023 for BPH. He is using the Finasteride 5mg and Tamsulosin 0.4mg. He complained of dysuria and flank pain, he was prescribed Pyridium 200 mg BID prn and renal US was ordered. I have reviewed the retroperitoneum US results from 03/18/2023 revealed enlarged prostate measuring 111 mL. Mild bladder trabeculation consistent with chronic bladder outlet? physiology. No calculi or focal parenchymal lesions. No hydronephrosis. In discussion today, He states that he is emptying the bladder without any difficutlies. I discussed that there are no kidney stones or other renal pathology and his back pain is likely musculoskeletal related. 03/25/23: Evaluation today?UA? leukocyte s: negative; blood: negative. Bladder scan PVR 0 mL. Review of charts: Last visit: 01/09/2023? He is a Armenian speaking male. He niece was present during the visit, who interprets for him. He was previously seen by Dr. Rodriguez on 06/26/2022 for lower urinary tract symptoms. He states that he was treated for LUTS secondary to enlarged prostate. He states that he is taking Finasteride 5mg and Tamsulosin 0.4mg. He mentions having pain secondary to voiding, which is ongoing for 2 weeks. He also reports flank pain at this time. He had PSA done on 05/29/2021 showed 1.59, had another PSA on 08/31/2021 which showed 2.75 and most recent PSA done on 09/08/2022 showed 1.61. Evaluation today UA?01/09/2023 ? leucocytes: negative; blood: negative; PVR bladder scan 53mL. 03/25/2023: Plan: Will continue to monitor post-void residual. Continue Finasteride 5 mg, and tamsulosin 0.4 mg. Follow-up in 6 months. [facility] Medical History Palpitations Glaucoma High cholesterol History of snoring Stroke due to embolism Surgical History H/O colonoscopy Hx of brain surgery Family History Father No problems noted. Mother No problems noted. Social History Alcohol intake: current Alcohol intake frequency: does not drink Patient Tobacco Use Status: Never used Tobacco Review of Systems Const All systems reviewed & are unremarkable except as noted in HPI and below Reports no additional complaints Eyes Reports no additional complaints ENT Reports no additional complaints Card Denies dyspnea Resp Denies cough and Denies dyspnea GI Reports no additional complaints Musc Reports no additional complaints Skin/Breast Denies rash and Denies unusual bruising Neuro Reports no additional complaints Psych Reports no additional complaints Endo Reports no additional complaints Shmuel/Lymph Reports no additional complaints Aller/Immun Reports no additional complaints Office Procedures Post Void Residual Post Residual Void Post Void Residual (PVR): 0 [id number] Void Residual by ultrasound Results AMB Urinalysis, Automated UA Leukoctes 0 Megha/uL Last Edit by Zhane Whitlock Ethan on 03/25/23 13:07 UA Nitrite Negative Last Edit by Zhane Whitlock [facility] on 03/25/23 13:07 UA Urobilinogen 0.2 mg/dL Last Edit by Zhane Whitlock A on 03/25/23 13:0 7 UA Protein 15 mg/dL Last Edit by Zhane Whitlock A on 03/25/23 13:07 UA pH 6.0 Last Edit by Zhane Whitlock A on 03/25/23 13:07 UA Blood 0 Bharat/uL Last Edit by Zhane Whitlock [facility] on 03/25/23 13:07 UA Specific Majestic 1.030 Last Edit by Zhane Whitlock [facility] on 03/25/23 13: 07 UA Ketone Negative Last Edit by Zhane Whitlock [facility] on 03/25/23 13:07 UA Bilirubin 0 mg/dL Last Edit by Zhane Whitlock [facility] on 03/25/23 13:07 UA Glucose 0 mg/dL Last Edit by Zhane Whitlock A on 03/25/23 13:07 Results Reviewed Results Reviewed: Laboratory Last Values Urine pH (Auto) 6.0 03/25/23 12:58 Specific Majestic (Auto) 1.030 03/25/23 12:58 Urine Protein (Auto) 15 mg/dL 03/25/23 12:58 Glucose (UA)(Auto) 0 mg/dL 03/25/23 12:58 Urine Ketones (Auto) Negative 03/25/23 12:58 Urine Blood (Auto) 0 Bharat/uL 03/25/23 12:58 Urine Nitrite (Auto) Negative 03/25/23 12:58 Urine Bilirubin (Auto) 0 mg/dL 03/25/23 12:58 Urine Urobilinogen (Auto) 0.2 mg/dL 03/25/23 12:58 Leukocyte Esterase (Auto) 0 Megha/uL 03/25/23 12:58 Date of Service: 03/18/23 EXAMINATION:? US RETROPERITONEAL COMPLETE (RENAL) CLINICAL INFORMATION: Benign prostatic hyperplasia with lower urinary tract symptoms. COMPARISON:? CT abdomen and pelvis without contrast 09/24/2020. FINDINGS: RIGHT KIDNEY: 9.3 x 4.5 x 5.7 cm (SAG x AP x TRV). The kidney is normal in size, contour, and echogenicity. Renal cortical thickness is normal. No calculi or focal parenchymal lesions. No hydronephrosis. LEFT KIDNEY: 9.8 x 5.3 x 6.3 cm (SAG x AP x TRV). The kidney is normal in size, contour, and echogenicity. Renal cortical thickness is normal. No renal calculi or hydronephrosis. 0.9 cm simple cyst in the lower pole. No follow-up imaging is recommended. BLADDER: Mildly trabeculated. Bilateral ureteral jets are demonstrated. Prevoid bladder volume is 111 mL. Postvoid bladder volume is 24.2 mL. The prostate is enlarged measuring 6.7 x 5.5 x 5.7 cm, volume 111 mL. IMPRESSION:? Enlarged prostate measuring 111 mL. Mild bladder trabeculation consistent with chronic bladder outlet physiology. No hydronephrosis. Assessment & Plan Assessment & Plan (1) BPH w urinary obs/LUTS: Code(s): N40.1 - Benign prostatic hyperplasia with lower urinary tract symptoms; N13.8 - Other obstructive and reflux uropathy Plan Will continue to monitor post-void residual. Continue Finasteride 5 mg, and tamsulosin 0.4 mg. Follow-up in 6 months. Orders: Orders AMB Urinalysis Automated 03/25/23 Z13.9 - Encounter for screening, unspecified AMB Post Void Residual by ultrasound 03/25/23 N39.8 - Other specified disorders of urinary system Medications: New tamsulosin (Flomax) 0.4 mg PO BEDTIME 90 caps 3RF Patient Instructions: The patient had an opportunity to ask questions regarding treatment plan. All questions were answered. Imaging, Laboratory studies and physical exam results were discussed and reviewed in detail. No major barriers to understanding were i dentified. The patient expressed understanding and agreement with the above treatment plan.? ? ? The patient is aware they should contact our office by phone for worsening of their current condition or the appearance of new symptoms. Compliance is encouraged with any medications and followup testing that is ordered.? ? ? It is a privilege to be allowed the opportunity to participate in the urologic care of your patient. If you have any questions or concerns regarding treatment for the above conditions please do not hesitate to contact me. The office telephone contact is [phone].? ? ? This note is constructed in part using voice recognition software. While every effort has been made to ensure accuracy business communications instructor errors may have been included.? ? ? Yours sincerely,? ? ? David Stein MD? Coding Level of Care Code Est Pt Level 3 (42764) Diagnoses BPH w urinary obs/LUTS N40.1; N13.8 CPT Codes Post Residual Void - PVR CPT Code: 45613-Mute Void Residual by ultrasound ([id number])
== END 2023-03-25 14:27 | disposition home or self-care (01) ==
PROVIDERS: PCP Internal Medicine; Visit Provider Urology
DX: N40.1 Benign prostatic hyperplasia with lower urinary tract symptoms (principal); N13.8 Other obstructive and reflux uropathy
CPT/HCPCS: 99213

== ENCOUNTER → 2023-03-25 12:50 | Outpatient (BNVA) | payer OTHER, SELFPAY | PROVIDERS: PCP Internal Medicine; Visit Provider Urology | DX: N40.1 Benign prostatic hyperplasia with lower urinary tract symptoms (principal); N13.8 Other obstructive and reflux uropathy; Z79.899 Other long term (current) drug therapy | CPT/HCPCS: 51798; 81003; 99212 ==

== ENCOUNTER 2023-09-24 10:54 | Outpatient (AMB) | payer OTHER, SELFPAY ==
--- NOTE | 2023-09-24 11:23 | A.OFFVIS_ITS ---
Intake Visit Reasons: 6 month follow up Intake Note: Patient presents today for a follow-up BPH Meds- Tamsulosin & Finasteride Allergies to Antibiotic- No Known Allergies Blood Thinner- None PVR- 21 mL Backhoe Operator Required: Yes Backhoe Operator Language: Computerized Table Cutter Name: Allegrajaziel MYLES Whitlock/MARCELO Spani Information Interpreted: non-clinical & clinical Accompanied by: Self / Same As Patient Allergies No Known Allergies [No Known Allergies*] Allergy (Verified 09/24/23 11:29) Medication List - Last Reconciled 09/24/23 by David Stein MD amlodipine 5 mg PO DAILY atorvastatin 20 mg PO BEDTIME finasteride 5 mg PO DAILY 90 days tamsulosin (Flomax) 0.4 mg PO BEDTIME HPI Comments Details: 09/24/23--Jin is a 67-year-old male who presents today to the office for a follow-up. He was last seen on 03/25/2023 he is being followed for BPH and is prescribed tamsulosin and finasteride. He states he is voiding without difficulty. Denies dysuria or gross hematuria. UA no signs of infection. PVR 21 mL. Plan to continue proscar and tamsulosin. FU in one PSA screening. Review of charts: 03/25/2023? He is followed today for US results. The patient is a Uzbek speaking male. His family member is present and interprets for him. He was last seen by me on 01/09/2023 for BPH. He is using the Finasteride 5mg and Tamsulosin 0.4mg. He complained of dysuria and flank pain, he was prescribed Pyridium 200 mg BID prn and renal US was ordered. I have reviewed the retroperitoneum US results from 03/18/2023 revealed enlarged prostate measuring 111 mL. Mild bladder trabeculation consistent with chronic bladder outlet? physiology. No calculi or focal parenchymal lesions. No hydronephrosis. In discussion today, He states that he is emptying the bladder without any difficutlies. I discussed that there are no kidney stones or other renal pathology and his back pain is likely musculoskeletal related. Evaluation today?UA? leukocytes: negative; blood: negative. Bladder scan PVR 0 mL. Will continue to monitor post-void residual. Continue Finasteride 5 mg, and tamsulosin 0.4 mg. Follow-up in 6 months. 01/09/2023? He is a Uzbek speaking male. He niece was present during the visit, who interprets for him. He was previously seen by Dr. Rodriguez on 06/26/2022 for lower urinary tract symptoms. He states that he was treated for LUTS secondary to enlarged prostate. He states that he is taking Finasteride 5mg and Tamsulosin 0.4mg. He mentions having pain secondary to voiding, which is ongoing for 2 weeks. He also reports flank pain at this time. He had PSA done on 05/29/2021 showed 1.59, had another PSA on 08/31/2021 which showed 2.75 and most recent PSA done on 09/08/2022 showed 1.61. Evaluation today UA?01/09/2023 ? leucocytes: negative; blood: negative; PVR bladder scan 53mL. 09/24/23: Plan: continue proscar and tamsulosin. FU in one PSA screening. PFSH Medical History Palpitations Glaucoma High cholesterol History of snoring Stroke due to embolism Surgical History H/O colonoscopy Hx of brain surgery Family History Father No problems noted. Mother No problems noted. Social History Alcohol intake: current Alcohol intake frequency: does not drink Patient Tobacco Use Status: Never used Tobacco Office Procedures Post Void Residual Post Residual Void Post Void Residual (PVR): 21 [id number] Void Residual by ultrasound Results AMB Urinalysis, Automated UA Leukoctes 0 Megha/uL Last Edit by MYLES Newton on 09/24/23 11:42 UA Nitrite Negative Last Edit by MYLES Newton on 09/24/23 11:42 UA Urobilinogen 0.2 mg/dL Last Edit by MYLES Newton on 09/24/23 11:4 2 UA Protein 15 mg/dL Last Edit by MYLES Newton on 09/24/23 11:42 UA pH 5.5 Last Edit by MYLES Newton on 09/24/23 11:42 UA Blood 0 Bharat/uL Last Edit by MYLES Newton on 09/24/23 11:42 UA Specific Girard 1.025 Last Edit by MYLES Newton on 09/24/23 11: 42 UA Ketone Negative Last Edit by MYLES Newton on 09/24/23 11:42 UA Bilirubin 0 mg/dL Last Edit by MYLES Newton on 09/24/23 11:42 UA Glucose 0 mg/dL Last Edit by MYLES Newton on 09/24/23 11:42 Results Reviewed Results Reviewed: Laboratory Last Values Urine pH (Auto) 5.5 09/24/23 11:29 Specific Girard (Auto) 1.025 09/24/23 11:29 Urine Protein (Auto) 15 mg/dL 09/24/23 11:29 Glucose (UA)(Auto) 0 mg/dL 09/24/23 11:29 Urine Ketones (Auto) Negative 09/24/23 11:29 Urine Blood (Auto) 0 Bharat/uL 09/24/23 11:29 Urine Nitrite (Auto) Negative 09/24/23 11:29 Urine Bilirubin (Auto) 0 mg/dL 09/24/23 11:29 Urine Urobilinogen (Auto) 0.2 mg/dL 09/24/23 11:29 Leukocyte Esterase (Auto) 0 Megha/uL 09/24/23 11:29 Date of Service: 03/18/23 EXAMINATION:? US RETROPERITONEAL COMPLETE (RENAL) CLINICAL INFORMATION: Benign prostatic hyperplasia with lower urinary tract symptoms. COMPARISON:? CT abdomen and pelvis without contrast 09/24/2020. FINDINGS: RIGHT KIDNEY: 9.3 x 4.5 x 5.7 cm (SAG x AP x TRV). The kidney is normal in size, contour, and echogenicity. Renal cortical thickness is normal. No calculi or focal parenchymal lesions. No hydronephrosis. LEFT KIDNEY: 9.8 x 5.3 x 6.3 cm (SAG x AP x TRV). The kidney is normal in size, contour, and echogenicity. Renal cortical thickness is normal. No renal calculi or hydronephrosis. 0.9 cm simple cyst in the lower pole. No follow-up imaging is recommended. BLADDER: Mildly trabeculated. Bilateral ureteral jets are demonstrated. Prevoid bladder volume is 111 mL. Postvoid bladder volume is 24.2 mL. The prostate is enlarged measuring 6.7 x 5.5 x 5.7 cm, volume 111 mL. IMPRESSION:? Enlarged prostate measuring 111 mL. Mild bladder trabeculation consistent with chronic bladder outlet physiology. No hydronephrosis. Assessment & Plan Assessment & Plan (1) Screening PSA (prostate specific antigen): Code(s): Z12.5 - Encounter for screening for malignant neoplasm of prostate Category: Medical (2) BPH w urinary obs/LUTS: Code(s): N40.1 - Benign prostatic hyperplasia with lower urinary tract symptoms; N13.8 - Other obstructive and reflux uropathy Category: Medical Plan Continue proscar and tamsulosin. FU in one PSA screening. Orders: Orders AMB Post Void Residual by ultrasound 09/24/23 N39.8 - Other specified disorders of urinary system AMB Urinalysis Automated 09/24/23 Z13.9 - Encounter for screening, unspecified PSA,Total (Free>4and<10) 09/24/23 Z12.5 - Encounter for screening for malignant neoplasm of prostate Medications: Refilled finasteride 5 mg PO DAILY 90 tabs 3RF 90 days N40.1 - Benign prostatic hyperplasia with lower urinary tract symptoms, N13.8 - Other obstructive and reflux uropathy, R33.9 - Retention of urine, unspecified tamsulosin (Flomax) 0.4 mg PO BEDTIME 90 caps 3RF Patient Instructions: The patient had an opportunity to ask questions regarding treatment plan. The patient expressed understanding and agreement with the above treatment plan. The patient is aware they should contact our office by phone for worsening of their current condition or the appearance of new symptoms. Compliance is encouraged with any medications and followup testing that is ordered. It is a privilege to be allowed the opportunity to participate in the urologic care of your patient. If you have any questions or concerns regarding treatment for the above conditions please do not hesitate to contact me. The office telephone contact is [phone]. This note is constructed in part using voice recognition software. While every effort has been made to ensure accuracy global account executive errors may have been included. Yours sincerely, David Stein MD Coding Level of Care Code Est Pt Level 4 (24412) Diagnoses Screening PSA (prostate specific antigen) Z12.5 BPH w urinary obs/LUTS N40.1; N13.8 CPT Codes Post Residual Void - PVR CPT Code: 62116-Eksp Void Residual by ultrasound ([id number])
== END 2023-09-24 12:16 | disposition home or self-care (01) ==
PROVIDERS: PCP Internal Medicine; Visit Provider Urology
DX: Z12.5 Encounter for screening for malignant neoplasm of prostate (principal); N40.1 Benign prostatic hyperplasia with lower urinary tract symptoms; N13.8 Other obstructive and reflux uropathy
CPT/HCPCS: 99214

== ENCOUNTER → 2023-09-24 10:54 | Outpatient (BNVA) | payer OTHER, SELFPAY | PROVIDERS: PCP Internal Medicine; Visit Provider Urology | DX: Z12.5 Encounter for screening for malignant neoplasm of prostate (principal); N40.1 Benign prostatic hyperplasia with lower urinary tract symptoms; N13.8 Other obstructive and reflux uropathy | CPT/HCPCS: 51798; 81003; 99212 ==

== ENCOUNTER 2023-10-22 06:45 | Outpatient (REF) | payer OTHER, SELFPAY | END 2023-10-22 06:46 | disposition home or self-care (01) | LOC: HO.LAB 06:45 | PROVIDERS: PCP Internal Medicine; Visit Provider Urology | DX: Z12.5 Encounter for screening for malignant neoplasm of prostate (principal) | CPT/HCPCS: 36415; 84153 ==

== ENCOUNTER 2024-03-19 03:59 | Emergency (ER) | payer OTHER, SELFPAY ==
--- NOTE | 2024-03-19 | ECG_ITS ---
Test Reason : chest pain Blood Pressure : / mmHG Vent. Rate : 069 BPM Atrial Rate : 069 BPM P-R Int : 118 ms QRS Dur : 142 ms QT Int : 424 ms P-R-T Axes : 060 013 051 degrees QTc Int : 454 ms Sinus rhythm with Premature atrial complexes Right bundle branch block Abnormal ECG When compared with ECG of 24-SEP-2020 10:42, Right bundle branch block is now Present Heart rate has increased Referred By: Generic ED Physician Electronically Signed By:TRIP DURHAM
--- NOTE | ~2024-03-19 | XR_ITS ---
EXAMINATION: XR CHEST CLINICAL INFORMATION: Chest pain. COMPARISON: None available. TECHNIQUE: 2 views of the chest were obtained. FINDINGS: The cardiomediastinal silhouette is within normal limits. There is a calcific granuloma right upper lobe. The lungs are otherwise clear. There are no significant pleural effusions. The bony structures and the soft tissues are unremarkable. XR/XR chest 2V IMPRESSION: No evidence for acute cardiopulmonary disease. Calcified granuloma right upper lobe. Electronically signed by: Yahir Fischer MD 03/19/2024 06:28 AM EDT RP
[2024-03-19 04:18] VITALS: BP 146/94; PULSE 68; RESP 19; TEMP 36.9; O2SAT 97; BMI 22.4
[2024-03-19 04:22] LABS: Basophils Absolute Auto 0.1 X10*3/uL (0.0-0.2); Basophils Percent Auto 0.8 % (0-2); Eosinophils Absolute Auto 0.1 X10*3/uL (0.0-0.4); Eosinophils Percent Auto 1.4 % (0-4); Hematocrit 42.9 % (42.0-52.0); Hemoglobin 14.6 g/dl (14.0-18.0); Imm Gran Abs Auto 0.02 X10*3/uL (0.00-0.03); Imm Gran Pct Auto 0.2 % (0.0-0.4); Lymphocytes Absolute Auto 3.2 X10*3/uL (1.2-4.9); Lymphocytes Percent Auto 30.9 % (20-40); MANUAL DIFF FLAG NO; Mean Corpuscular Volume 88.1 fL (80.0-98.0); Mean Platelet Volume 9.3 fL (9.4-12.4); Monocytes Absolute Auto 0.9 X10*3/uL (0.1-1.2); Monocytes Percent Auto 8.2 % (2-11); Neutrophils Percent Auto 58.5 % (45-73); Platelet Count 272 X10*3/uL (160-400); Red Blood Count 4.87 X10*6/uL (4.60-5.80); Red Cell Distribution Width 13.2 % (11.0-16.0); White Blood Count 10.3 X10*3/uL (4.8-10.8)
[2024-03-19 04:45] LABS: Alanine Aminotransferase 15 U/L (0-40); Albumin Level 4.1 g/dL (3.5-5.0); Alkaline Phosphatase 73 U/L (39-117); Anion Gap 13 (12-20); Aspartate Amino Transferase 16 U/L (5-37); Blood Urea Nitrogen 16 mg/dL (9-16); Calcium 9.6 mg/dL (8.4-10.2); Carbon Dioxide 23 mmol/L (22-29); Chloride 108 mmol/L (96-108); Creatinine Clr Calc Pharmacy 63.2; Estimated Glomerular Filt Rate > 60; Glucose Random 114 mg/dL (60-115); Magnesium 1.9 mg/dL (1.6-2.6); Sodium 140 mmol/L (135-145); Total Protein 7.2 g/dL (6.5-8.0)
[2024-03-19 05:00] LABS: Troponin-I High Sensitivity < 2.7 ng/L (<3.5-35.0)
--- NOTE | 2024-03-19 05:36 | PC.NURSE ---
this rn assumed care of pt, pt a&ox4, respirations even and unlabored. pt reporting sudden onset of x30 minutes of left sided chest pain that felt tight. pt denies n/v/d. pt normal sinus on tele 70-75bpm.
[2024-03-19 06:27] VITALS: BP 145/95; PULSE 48; RESP 23; TEMP 37.1; O2SAT 97
[2024-03-19 06:31] LABS: Troponin-I High Sensitivity < 2.7 ng/L (<3.5-35.0)
--- NOTE | 2024-03-19 06:42 | ED.CHESTPAIN ---
HPI - Chest Pain General Chief Complaint: Chest Pain Stated Complaint: Chest Pains Time Seen by Provider: 03/19/24 05:30 Source: patient and family Mode of arrival: ambulatory Limitations: no limitations History of Present Illness ED Provider: Dr. Medrano HPI narrative: Patient is a 68 yo male with no cardiac history who presents with chest pain that woke him from sleep. Patient states that the pain was a tightness and it lasted 30 minutes, nonradiating. Patient states he walks miles everyday, with no pain going up hill or up the stairs. He had a stress test many years ago that was normal. Related Data Home Medications ?Medication ?Instructions ?Recorded ?Confirmed amlodipine 5 mg tablet 5 mg PO DAILY 06/26/22 09/24/23 atorvastatin 20 mg tablet 20 mg PO BEDTIME 01/09/23 09/24/23 Previous Rx's ?Medication ?Instructions ?Recorded finasteride 5 mg tablet 5 mg PO DAILY 90 days #90 tabs 09/24/23 tamsulosin 0.4 mg capsule (Flomax) 0.4 mg PO BEDTIME #90 caps 09/24/23 Allergies Allergy/AdvReac Type Severity Reaction Status Date / Time No Known Allergies Allergy Verified 03/19/24 04:19 [No Known Allergies*] Review of Systems Review of Systems: Yes all other systems are reviewed and are negative Neurologic: Denies Sensory deficit (Neuro) PMFSH Past Medical History Medical History Palpitations Glaucoma High cholesterol History of snoring Stroke due to embolism Surgical History H/O colonoscopy Hx of brain surgery Family History Family History Father No problems noted. Mother No problems noted. Social History Social History Alcohol intake: current Alcohol intake frequency: does not drink Patient Tobacco Use Status: Never used Tobacco Smoked in Last 30 Days: No Use of substances other than those prescribed or required for medical reasons: No Advance Directives: No Advance Directives Information Provided: Yes Do you have a plan to hurt others: No Plan Physical Exam Vital Signs: Vital Signs: Last Vital Signs Temp 98.8 F 03/19/24 06:27 Pulse 48 L 03/19/24 06:27 Resp 23 H 03/19/24 06:27 BP 145/95 H 03/19/24 06:27 Pulse Ox 97 03/19/24 06:27 O2 Del Method Room Air 03/19/24 04:18 BMI result Body Mass Index 22.4 Const: Other: very thin male in no acute distress Orientation/consciousness: oriented to person and patient oriented x3 Limitations: no limitations HEENT: Head: Yes normal to inspection Ears: external ears normal General nose exam: Normal external nose present Mouth: Normal oral and palatal mucosa present and oropharynx normal Throat: Yes posterior oropharynx normal Eyes: General: appearance normal, both eyes and all related structures Neck: Other: supple Neck: Yes normal visual inspection Chest: Chest palpation & inspection: normal inspection of the chest Resp: Auscultation: clear to auscultation bilaterally Cardio: Jugular venous distension: no JVD Rate: regular rate Rhythm: regular rhythm Heart sounds: S1 normal heart sound present and S2 normal heart sound present GI: Inspection: Yes normal to inspection Palpation (GI): Soft to palpation, nontender and No hepatosplenomegaly present Auscultation: normal bowel sounds : General: Yes no CVA tenderness Back/Spine/Pelvis: Back: no CVA tenderness Skin: General skin exam: no rashes or lesions noted Neuro: General: oriented to person and patient oriented x3 Cranial nerves: Yes CN's II-XII intact bilaterally Motor exam (neuro): 5/5 motor strength present throughout Sensory Exam: No Sensory deficit (Neuro) Extrem: General: Yes normal to inspection Psych: Appearance: grossly normal Course Reevaluation(s) Reevaluation #1: Labs, serial troponins, CXR all normal. Will dc home. Time: 06:47 Medical Decision Making Differential Diagnosis Differential Diagnoses: The differential diagnosis associated with the presentation includes (cardiac ischemia, pneumonia, PTX, GERD ) Admission/Observation Consideration of admission/observation: Escalation of care including admission/observation considered (upon arrival patient was considered for admission) Lab Data 03/19/24 04:15 03/19/24 04:15 Labs: Lab Results 03/19/24 03/19/24 Range/Units 04:15 05:53 WBC 10.3 (4.8-10.8) X10*3/uL RBC 4.87 (4.60-5.80) X10*6/uL Hgb 14.6 (14.0-18.0) g/dl Hct 42.9 (42.0-52.0) % MCV 88.1 (80.0-98.0) fL MCH 30.0 (27.0-33.0) pg MCHC 34.0 (31.0-36.0) g/dl RDW 13.2 (11.0-16.0) % Plt Count 272 (160-400) X10*3/uL MPV 9.3 L (9.4-12.4) fL Immature Gran % (Auto) 0.2 (0.0-0.4) % Neut % (Auto) 58.5 (45-73) % Lymph % (Auto) 30.9 (20-40) % [place] % (Auto) 8.2 (2-11) % Eos % (Auto) 1.4 (0-4) % Baso % (Auto) 0.8 (0-2) % Lymph # (Auto) 3.2 (1.2-4.9) X10*3/uL [place] # (Auto) 0.9 (0.1-1.2) X10*3/uL Eos # (Auto) 0.1 (0.0-0.4) X10*3/uL Baso # (Auto) 0.1 (0.0-0.2) X10*3/uL Abs Immat Gran (auto) 0.02 (0.00-0.03) X10*3/uL Absolute Neuts (auto) 6.0 (2.0-8.3) x10*3/uL Absolute Nucleated RBC 0.000 (0.0-0.012) X10*3/uL Nucleated RBC % (auto) 0.0 (0.0-0.2) /100WBC Sodium 140 (135-145) mmol/L Potassium 4.0 (3.3-5.1) mmol/L Chloride 108 (96-108) mmol/L Carbon Dioxide 23 (22-29) mmol/L Anion Gap 13 (12-20) BUN 16 (9-16) mg/dL Creatinine 1.06 (0.5-1.4) mg/dL Estim Creat Clear Calc 63.2 Estimated GFR > 60 Random Glucose 114 (60-115) mg/dL Calcium 9.6 (8.4-10.2) mg/dL Magnesium 1.9 (1.6-2.6) mg/dL Total Bilirubin 1.0 (0.0-1.0) mg/dL AST 16 (5-37) U/L ALT 15 (0-40) U/L Alkaline Phosphatase 73 (39-117) U/L Troponin I High Sens < 2.7 < 2.7 (<3.5-35.0) ng/L Total Protein 7.2 (6.5-8.0) g/dL Albumin 4.1 (3.5-5.0) g/dL Independent Interpretation I performed an independent interpretation of an: EKG (sinus with apcs, rbbb, no st or twave changes) and Plain X-Ray (cxr: hyperinflated, no infiltrate or PTX) Independent Historian Clinical information obtained from an independent historian. History obtained from or confirmed by: Spouse Prescription Management I considered prescription management with: Antibiotic (no infiltrate on CXR) Discharge Plan Discharge Clinical Impression: Chest pain Patient Disposition: Home, Self-Care Instructions: Chest Pain (ED), Chest Pain (DC) Prescriptions: No Action amlodipine 5 mg tablet 5 mg PO DAILY atorvastatin 20 mg tablet 20 mg PO BEDTIME finasteride 5 mg tablet 5 mg PO DAILY 90 Days Qty: 90 3RF tamsulosin [Flomax] 0.4 mg capsule 0.4 mg PO BEDTIME Qty: 90 3RF Referrals: Beatriz Smith DO [Primary Care Provider] - 3 days Print Language: Bulgarian
[2024-03-19 07:22] VITALS: BP 145/95; PULSE 48; RESP 23; TEMP 37.1; O2SAT 97
== END 2024-03-19 07:26 | disposition home or self-care (01) ==
PROVIDERS: Emergency Provider Emergency Medicine; PCP Internal Medicine
DX: R07.9 Chest pain, unspecified (principal); R06.83 Snoring
CPT/HCPCS: 36415; 71046; 80053; 83735; 84484; 85025; 93005; 99283; 99285

== ENCOUNTER 2024-08-10 14:16 | Outpatient (AMB) | payer OTHER, SELFPAY ==
--- OUTSIDE RECORDS SUMMARY | 2024-08-10 14:27 | XMS_ITS | Data Portability ---
Author Organization [employer] [facility] [employer] Address [address] [place] [address] Care Team Providers Care Boiler Room Operator Name Role Phone HIM CCA OTHER Assessment Encounter Date Assessment Date Assessment LastModified by Organization Details LastModified Time 06/24/2024 06/24/2024 I have reviewed and agree with the assessment and plan as documented by the squirrel worker. I provided real-time medical direction for this encounter and was immediately available to provide additional phone-based assistance as needed. HPI: 69M presenting with intermittent flank pain bilaterally, and urinary symptoms. Hx of BPH, DLP, HTN. Pt states he is not taking tamsulosin regularly. Took 1g Tylenol today a few hours ago which helped. No foul odor or hematuria. Hx of CKD. VSS. Abdominal soft, nontender. Exam otherwise unremarkable per the squirrel worker. U/A negative Impression: Flank pain and urinary sx, possible UTI, although U/A is negative. Differential includes stone. Unlikely torsion, unlikely GI related given no other symptoms. Plan: Continue Tylenol 1g q 6. Given Hx of CKD, do not recommend Toradol at this time. Continue tamsulosin Send urine for culture No abx started today Disposition: We discussed the diagnostic uncertainty of home visits and the risk associated with this. In this case, the patient and I felt this to be an acceptable and reasonable amount of risk given the benefit of avoiding an ED visit. We discussed the need to seek care urgently/emerge ntly in the setting of any new or worsening serious symptoms, particularly weakness, dizziness, fever, chills, CP, SOB, worsening diarrhea, nausea, vomiting or any other concerns. paysola Not available 06/24/2024 20:29:36 Plan of Treatment Reminders Order Date Submit Date Provider Last Modified By Organization Details Last Modified Time Details Appointments None recorded. Lab culture, urine 2024 025 KAYLA [facility], [address], [place], [address], 21:13:18 urinalysis , dipstick [address] [place] [address], [address] [place] [address], [phone], 19:29:35 Referral None recorded. Procedures None recorded. Surgeries None recorded. Imaging None recorded. Medication Orders None recorded. Patient TargetsNo targets recorded. Patient InstructionsNo instructions recorded. Reason for Referral None Reported. Results Created Date Observation Date Name Description Value Unit Range Abnormal Flag Note LastModifiedBy Organization Detail LastModifiedTime 06/24/1906/27/2024 TEST IN [facility] [facility] question/pro blem: There is a quest ion regar ding the follo wing speci men submi tted and/o r the test reque sted. Not Available [address] [place], [place], [address], 06/27/2024 21:13:17 06/24/1906/27/2024 [facility] question: VERIFY DOC 06/24/19 ON SPECIM EN Not Available [address] [place], [place], [address], 06/27/2024 21:13:17 06/24/1906/27/2024 TEST IN [facility] [employer] [facility] comment REQUE STED INFOR EMMA Vega____ AUTHO RIZED SIGNA TURE_ ____ TO PREVE NT FURTH ER DELAY S IN TESTI GENA GARZA E COMPL ETE INFOR EMMA Vega ABOVE AND FAX TO [phone] OR EMAIL TO Raz Gillis @[email or web address] tdiag [email or web address] m TO RESOL VE THIS ORDER . Not Available [facility] [address], [address], 06/27/2024 21:13:17 06/24/19 25 06/27/2024 CULTU RE, URINE , ROUTI NE culture SEE NOTE Not Available [facility] [address], [address], 06/27/2024 21:13:18 06/24/19 25 06/28/2024 CULTU RE, URINE , ROUTI NE culture, urine, routine SEE NOTE CULTU RE, URINE , ROUTI NE Micro Numbe r: [id number] Test Statu s: Final Speci men Sourc e: Urine Speci men Quali ty: Adequ ate Resul t: No Growt h Not Available [facility] [address], [address], 06/28/2024 04:42:02 Result Notes None recorded. Medical Equipment None Reported. Allergies No known drug allergies Medications Name Sig Start Date Stop Date Status Note LastModified by Organization Details LastModified Time amoxicillin 500 mg capsule TAKE ONE CAPSULE BY MOUTH EVERY 8 HOURS NEEDED FOR 5 DAYS active Not Available Not Available No t Available atorvastatin 20 mg tablet TAKE 1 TABLET BY MOUTH AT BEDTIME active Not Available Not Available No t Available ibuprofen 800 mg tablet TAKE 1 TABLET BY MOUTH THREE TIMES DAILY NEEDED active Not Available Not Available No t Available amlodipine 5 mg tablet TAKE 1 TABLET BY MOUTH DAILY active Not Available Not Available No t Available acetaminophen 500 mg tablet TAKE 1 TABLET BY MOUTH EVERY 4 TO 6 HOURS NEEDED active Not Available Not Available No t Available amoxicillin 500 mg tablet TAKE 1 TABLET BY MOUTH THREE TIMES DAILY UNTIL GONE active Not Available Not Available No t Available prednisolone acetate 1 % eye drops,suspensio n SHAKE LIQUID AND INSTILL 1 DROP IN LEFT EYE FOUR TIMES DAILY active Not Available Not Available No t Available tamsulosin 0.4 mg capsule TAKE 1 CAPSULE BY MOUTH AT BEDTIME active Not Available Not Available No t Available lisinopril 2.5 mg tablet TAKE 1 TABLET BY MOUTH DAILY active Not Available Not Available No t Available finasteride 5 mg tablet TAKE 1 TABLET BY MOUTH DAILY active Not Available Not Available No t Available chlorhexidine gluconate 0.12 % mouthwash active Not Available Not Available Not Available Vitals Date Recorded Body height Oxygen saturation Oxygen saturation in Arterial blood by Pulse oximetry Body temperature Body weight Respiratory rate Heart rate Systolic blood pressure Diastolic blood pressure Provider Name and Address Organization Details Last Updated DateTime 175.26 cm 99 % 99 % 98.2 [degF] 91396.5 76 g 19 /min 65 /min 169 mm[Hg] 89 mm[Hg] Not Available [facility] - production 19:24:36 Social History None recorded. Functional Status None recorded. Mental Status None recorded. Family History Nothing Reported. Medical History No medical history recorded. Past Encounters Encounter ID Performer Location Encounter Start Date Encounter Closed Date Diagnosis/Indication Diagnosis SNOMED-CT Code Diagnosis ICD10 Code Diagnosis Note [id number] Tash Dowell MD Main - [facility] [address] [place] [phone] 06/24/2024 19:24:31 06/24/2024 22:05:02 Urinary symptoms 230455622 R39.9 Health Concerns Section Related Observation LastModified by Organization Detai ls LastModified Time None Recorded Concern Status LastModified by Organization Details LastModified Time None Recorded Advance Directives Directive None Recorded Payers Encounter Date Sequence Insurance Name Policy Number Policy Diaz Covered Member ID Diaz Member ID Guarantor Name 06/24/[address] [facility] - DOS ON OR AFTER 2022 - DUAL ELIGIBLE - CORRECTION OPTIONS AND ONE CARE (MEDICARE REPLACEMENT/ADV ANTAGE - HMO) Jin Cordova [id number] Jin Cordova Notes Date Note Type Note Provider Name and Address Organization Details Recorded Time 06/24/2024 text/html [facility] Nurse Triage Notes (Pauly Tate - RN): Reason For Request: Pt reporting he has a urologist appointment on october 10 2024>noting he has abdominal pain + pain with urination>symptoms going on 3-4 days>Pt notes he is suppose to take atorvastatin 20mg, daily before bedtamsulosin 4mg, 1 capsule daily but that he does NOT regularly take themBP today was 120/68 Chief Complaints: Urinary symptoms PMH: Benign Prostatic Hyperplasia (BPH), Hyperlipidemia, Hypertension Comments: Referral taken via Health Policy Manager, patient calling in to place a referral, identified via name and . Patient with BPH, and ?recurrent UTIs, but doesn't see his urologist until September. He endorses 3-4 days of dysuria and painful urination, frequency, abdominal and flank pain. Denies fever/chills, no n/v, no malodor or hematuria. He would like to be evaluated. He notes he had hematuria in Apr 2024. Milk Runner Organization Information for Lam Condon [employer] Legal Name: [facility] Address: [address] [place] [address], [place] [address], Correctional Cook: Ty Camargo MD ALBINA No.: [id number] Milk [employer]ner POC Test Results from Lam Condon Urine Dipstick (19:21:23) Urine leukocytes: - TRI Urine nitrites: - NIT Urine urobilinogen: 0.2 URO Urine protein: 30 PRO Urine pH: 5.0 pH Urine blood: - BLO Urine specific gravity: 1.020 SG Urine ketones: + KET Urine bilirubin: - SHELLI Urine glucose: - GLU Attachments uploaded as part of this test result can be found under Documents section. .................... .................... .................... .................... .................... .................... .................... . Milk Runner Note From Lam Condon: Pt chief complaint today of urinary symptoms/ abdominal and flank pain. Pt states that he has been feeling these symptoms for the past 4 days prior to his [facility] visit today. Pt notes that he has not been having any foul odor or noticeable blood in his urine as noted the previous time he had an [facility] visit. Pt also notes to have abdominal pain. At a 8/10 mostly I. His left flank and radiating down to his pubis. Pt is primary Slovenian speaking and states he also is not taking his Atorvastatin regularly as prescribed due to not fully understating the medication. Pt states that he is looking for an assessment today with possible treatment as needed. Pt denies any cp, sob, NVD, dizziness and no changes i. Urinary output or bowel changes. Allergies are noted. Pt notes last [facility] visited noted blood In urine Nonneural focal exam, afebrile, vitals WNL, lungs are clear bilaterally, pt abdomen is assessed and MI note no tenderness, trauma and rigidity. Palpation In the left flank is noted. Urine dip test noted to be negative of leukocytes and nitrates. Culture acquired to be sent to [facility]. No bilateral no lower extremity edema noted. [facility] tash dowell consulted.Pt informed, of urine dip and culture taken. Pt informed he necessity of his medication and to use the medication as prescribed. Pt also informed to take a total of 4 grams of Tylenol in a 24 hour time as needed for assistance with pain. Pt informed to make an earliest as convenience follow up with his PCP and is educated on re flag S&S pt is told to call emergency services if any present. .................... .................... .................... .................... .................... .................... .................... . [facility] Consulted: Tash Dowell .................... .................... .................... .................... .................... .................... .................... . Disposition: Fulfilled Tash Dowell MD [address] [facility],[address], [place], [address], KIRSTIN VARGAS 06/24/2024 20:29:50
--- NOTE | 2024-08-10 14:41 | MHC.OFFVIS ---
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 Patient denies any prior cardiac history including coronary disease or myocardial infarction or cardiomyopathy. Few months back, he had an episode of chest pain that prompted ER visit. He has not had any further episodes. Per ER description, patient was asleep and chest pain woke him up. It felt like a tightness and lasted about 30 minutes. He had cardiac troponins checked twice and they were unremarkable with no ischemic changes in the EKG and he was discharged home. He states he has been feeling fine since. No further episodes. Otherwise, on meds for hypertension and cholesterol. [facility] Medical History (Updated 08/10/24 @ 15:50 by Alfredo Palomares MD) Primary hypertension Palpitations Glaucoma High cholesterol History of snoring Stroke due to embolism Surgical History H/O colonoscopy Hx of brain surgery Family History Father No problems noted. Mother No problems noted. Social History Alcohol intake: current Alcohol intake frequency: does not drink Patient Tobacco Use Status: Never used Tobacco Review of Systems Const Denies weakness ENT Denies dizziness Card Denies chest pain, Denies chest pain with activity, Denies syncope, Denies rapid heart rate, Denies pedal edema, Denies edema, Denies leg edema, Denies lightheadedness, Denies palpitations, Denies dyspnea, Denies dyspnea on exertion and Denies orthopnea Resp Denies cough, Denies dyspnea and Denies dyspnea on exertion GI Denies hematochezia and Denies change in stool character Musc Denies abnormal gait, Denies muscle cramps, Denies muscle weakness, Denies numbness, Denies radiating pain into limb and Denies tingling Neuro Denies abnormal gait, Denies dizziness, Denies syncope, Denies numbness, Denies tingling and Denies weakness Endo Denies palpitations Physical Exam Vital Signs: Last Vital Signs Pulse 63 08/10/24 14:42 BP 120/80 08/10/24 14:42 BMI result Body Mass Index 22.1 Const General: comfortable and no acute distress Orientation/consciousness: patient oriented x3 HEENT Other: Unremarkable Head: Yes normal to inspection Neck Neck: Yes normal visual inspection Chest Chest palpation & inspection: normal inspection of the chest Resp Auscultation: clear to auscultation bilaterally Cardio Palpation: normal PMI Heart sounds: S1 normal heart sound present, S2 normal heart sound present, no gallops, no murmurs and no rubs GI Palpation (GI): Soft to palpation Back/Spine/Pelvis Other: unremarkable Skin General skin exam: no rashes or lesions noted Neuro General: patient oriented x3 Extrem General: Yes normal to inspection Psych Mental Status: mental status grossly normal Office Procedures EKG Details: EKG with sinus rhythm, sinus arrhythmia, right bundle-branch block pattern. [id number], Complete Assessment & Plan Assessment & Plan (1) Precordial chest pain: Code(s): R07.2 - Precordial pain Category: Medical (2) RBBB: Code(s): I45.10 - Unspecified right bundle-branch block Category: Medical (3) Primary hypertension: Code(s): I10 - Essential (primary) hypertension Category: Medical Plan Isolated episode of chest pain, but no recurring issues. We will plan on getting an echocardiogram/stress test for further evaluation. Based on findings, plan further care. Blood pressure stable on Amlodipine. Orders: Orders CA echo transthoracic complete Today R07.2 - Precordial pain CA stress test Today R07.2 - Precordial pain Coding Level of Care Code New Pt Level 4 (43406) Diagnoses Precordial chest pain R07.2 RBBB I45.10 Primary hypertension I10 CPT Codes EKG - CPT: 65465-[id number], Complete ([id number])
[2024-08-10 14:42] VITALS: BP 120/80; PULSE 63; BMI 22.1
== END 2024-08-10 15:09 | disposition home or self-care (01) ==
PROVIDERS: PCP Internal Medicine; Visit Provider Internal Medicine
DX: R07.2 Precordial pain (principal); I45.10 Unspecified right bundle-branch block; I10 Essential (primary) hypertension
CPT/HCPCS: 93010; 99204

== ENCOUNTER → 2024-08-10 14:16 | Outpatient (BNVA) | payer OTHER, SELFPAY | PROVIDERS: PCP Internal Medicine; Visit Provider Internal Medicine | DX: R07.2 Precordial pain (principal); I45.10 Unspecified right bundle-branch block; I10 Essential (primary) hypertension | CPT/HCPCS: 93005; 99202 ==

== ENCOUNTER → 2024-09-06 09:17 | Outpatient (REF) | payer OTHER, SELFPAY ==
--- NOTE | 2024-09-06 09:19 | CA_ITS ---
Transthoracic Echocardiogram Patient (Last, First, Middle): Jin Villegas A Gender: Male Date of : 1955 Age: 69 Procedure Date: 09/06/2024 Procedure Type: Transthoracic Echocardiogram Location: OP Height: 175.26 cm Weight: 68.04 kg BSA: 1.83 m2 Heart Rate: bpm BP: 120 / 80 mmHg Pharmacy Aide: ABEL Referring MD: Alfredo Palomares MD Time Motion Analyst: Segundo Dhillon MD Symptoms: R07.2 - Precordial pain Study Quality: Fair ECG Rhythm: Sinus with extra beats Conclusions: - 1. Low normal LV ejection fraction 50-55% with impaired relaxation filling pattern 2. Normal cardiac valvular Dopplers 3. Normal RV systolic pressure 4. No gross pericardial effusion Findings Left Ventricle Normal left ventricular cavity size. There is normal left ventricular wall thickness. The left ventricular systolic function is low normal. The visually estimated ejection fraction is between 50-55%. Spectral Doppler is indicative of an impaired relaxation filling pattern. E/E prime ratio is between 8 and 15 consistent with indeterminate filling pressures. Right Ventricle Normal right ventricular cavity size and systolic function. Atria The left atrium is normal in size. Interatrial shunt cannot be excluded. The right atrium is normal in size. Aortic Valve The aortic valve structure and function is likely normal. There is no aortic valve stenosis. There is no aortic valve regurgitation. Mitral Valve Normal mitral valve structure and function. There is trace mitral valve regurgitation. There is no mitral valve stenosis. Pulmonic Valve The pulmonic valve was not well visualized. Tricuspid Valve Likely normal tricuspid valve structure and function. There is mild tricuspid valve regurgitation. The right ventricular systolic pressure is normal. The right ventricular systolic pressure is 24 mmHg. Normal right atrial pressure. There is no evidence of pulmonary hypertension. Great Vessels All visible segments of the aorta are normal in size. The pulmonary artery was not well visualized. There is no dilatation of the ascending aorta measuring 3.40 cm. Venous The inferior vena cava is normal in size and collapses greater than 50% with inspiration. Pericardium/Pleural There is no evidence of pericardial effusion. Prior Study Comparison No prior study available for comparison. Measurements 2D Linear Measurements IVSd: 0.91 0.6-0.9/0.6-1.0 cm LVIDd: 4.74 3.9-5.3/4.2-5.9 cm LVIDd Index: 2.59 2.4-3.2/2.2-3.1 cm/m2 LVIDs: 3.05 2.0-3.6 cm LVPWd: 0.96 0.7-1.1 cm LA Diam: 3.00 2.7-3.8/3.0-4.0 cm LAIDs Index: 1.64 1.5-2.3 cm/m2 LV Mass: 189.33 67-162/88-224 g LV Mass Index: 103.46 43-95/49-115 g/m2 LVOT Diam: 1.90 3.0+(-)1.3 cm 2D Systolic Function EF 4C: 47.00 >55% EF 2C: 55.30 >55% EF BiP: 52.50 >55% Mitral Valve MV Pk E: 0.56 MV PK A: 0.89 MV Decel Time: 295.00 E/A: 0.60 E'Lateral: 8.90 E'Medial: 5.44 E/E' Med: 10.30 E/E' Lat: 6.30 PHT: 86.00 MVA PHT: 2.56 Decel [place]: 2.22 Aortic Valve AoV Pk Regan: 1.24 AoV Mn Regan: 0.87 AoV VTI: 0.29 AoV Pk Grad: 6.00 Aov Mn Grad: 4.00 GE Cont.VTI: 1.76 LVOT LVOT Pk Regan: 0.84 LVOT Mn Regan: 0.54 LVOT VTI: 0.18 LVOT Pk Grad: 3.00 LVOT Mn Grad: 2.00 LVOT Diam: 1.90 LVOT Area: 2.84 Diastolic Function MV Pk E: 0.56 MV Pk A: 0.89 E/A: 0.60 E'Medial: 5.44 E/E' Med: 10.30 E' Laterial: 8.90 E/E' Lat: 6.30 Right Ventricle TAPSE (mm): 19.60 TVS' Regan: 10.90 Tricuspid Valve TR Pk Regan: 2.28 TR Pk Grad: 21.00 RA Press: 3.00 RVSP: 24.00 Great Vessels Aorta Sinus of Valsalva: 3.29 2.0-3.[address] [place]: 2.35 1.7-3.4 cm Ao Asc: 3.40 2.1-3.4 cm Updated in Other Vendor System with Status of Final Segundo Dhillon MD electronically signed on 09/06/2024 4:33:21 PM with status of Final
--- NOTE | 2024-09-06 09:19 | CA_ITS ---
Acquisition Time: 2024-09-06 10:38:10 Total Exercise Time: 00:07:23 Test Indications: Medications: Protocol: ANA Max HR: 129 BPM 86% of Pred: 149 BPM Max BP: 150/90 mmHG Max Work Load: 8.3 METS Exercise Stress Test with exercise 7 mins 23 secs of Ana Protocol, with speed upto 2.8mph and incline to 15%, achieving 86% MPHR, without any anginal symptoms, without any arrythmias, with normotenisve response to exercise. Without EKG changes meeting criteria for ischemia. Test reviewed with Dr. South. Referred By: Alfredo Palomares Electronically Signed By: Farshad Caldwell
--- OUTSIDE RECORDS SUMMARY | 2024-09-06 10:00 | XMS_ITS | Data Portability ---
Author Organization [employer], [employer] Address [address] [place] [address] Care Team Providers Care Brick Carrier Name Role Phone HIM CCA OTHER Assessment Encounter Date Assessment Date Assessment LastModified by Organization Details LastModified Time 06/24/2024 06/24/2024 I have reviewed and agree with the assessment and plan as documented by the president & ceo [employer]. I provided real-time medical direction for this [...] soft, nontender. Exam otherwise unremarkable per the president & ceo [employer]. U/A negative Impression: Flank pain and urinary [...] recorded. Lab culture, urine 2024 025 KAYLA [facility], [address], [place], [address], 21:13:18 urinalysis , dipstick [address] [place] [address], [address] [place] [address], [phone], 19:29:35 Referral None recorded. Procedures None recorded. Surgeries None recorded. Imaging None recorded. Medication Orders None recorded. Patient TargetsNo targets recorded. Patient InstructionsNo instructions recorded. Reason for Referral None Reported. Results Created Date Observation Date Name Description Value Unit Range Abnormal Flag Note LastModifiedBy Organization Detail LastModifiedTime 06/24/1906/27/2024 TEST IN [facility] [place] [facility] question/pro blem: There is a quest ion regar ding the follo wing speci men submi tted and/o r the test reque sted. Not Available [employer] [place], [place], [address], 06/27/2024 21:13:17 06/24/1906/27/2024 [facility] question: VERIFY DOC 06/24/19 ON SPECIM EN Not Available [employer] [place], [place], [address], 06/27/2024 21:13:17 06/24/1906/27/2024 TEST IN [facility] [place] [facility] comment REQUE STED INFOR EMMA Vega____ AUTHO RIZED SIGNA TURE_ ____ TO PREVE NT FURTH ER DELAY S IN TESTI GENA GARZA E COMPL ETE INFOR EMMA Vega ABOVE AND FAX TO [phone] OR EMAIL TO Raz Gillis @[facility] [email or web address] [email or web address] m TO RESOL VE THIS ORDER . Not Available [facility] [address], [address], 06/27/2024 21:13:17 06/24/19 25 06/27/2024 CULTU RE, URINE , ROUTI NE culture SEE NOTE Not Available [facility] [address], [address], 06/27/2024 21:13:18 06/24/19 25 06/28/2024 CULTU RE, URINE , ROUTI NE culture, urine, routine SEE NOTE CULTU RE, URINE , ROUTI NE Micro Numbe r: [id number] Test Statu s: Final Speci men Sourc e: Urine Speci men Quali ty: Adequ ate Resul t: No Growt h Not Available [facility] [address], [address], 06/28/2024 04:42:02 Result Notes None recorded. Medical [...] cm 99 % 99 % 98.2 [degF] 24344.5 76 g 19 /min 65 /min 169 mm[Hg] 89 mm[Hg] Not Available [facility] - production 19:24:36 Social History None recorded. Functional Status None recorded. Mental Status None recorded. Family History Nothing Reported. Medical History No medical history recorded. Past Encounters Encounter ID Performer Location Encounter Start Date Encounter Closed Date Diagnosis/Indication Diagnosis SNOMED-CT Code Diagnosis ICD10 Code Diagnosis Note [id number] Tash Dowell MD Main - [facility] [address] [place] [phone] 06/24/2024 19:24:31 06/24/2024 22:05:02 Urinary symptoms 450191080 R39.9 Health Concerns Section Related Observation LastModified by Organization Detai ls LastModified Time None Recorded Concern Status LastModified by Organization Details LastModified Time None Recorded Advance Directives Directive None Recorded Payers Encounter Date Sequence Insurance Name Policy Number Policy Diaz Covered Member ID Diaz Member ID Guarantor Name 06/24/2024 1 [facility] - DOS ON OR AFTER 2022 - DUAL ELIGIBLE - SENIOR LIVING OPTIONS AND ONE CARE (MEDICARE REPLACEMENT/ADV ANTAGE - HMO) Jin Cordova [id number] Jin Cordova Notes Date Note Type Note [...] (BPH), Hyperlipidemia, Hypertension Comments: Referral taken via Coffee Maker, patient calling in to place a referral, identified via name and . Patient with BPH, and ?recurrent UTIs, but doesn't see his urologist until September. He endorses 3-4 days of dysuria and painful urination, frequency, abdominal and flank pain. Denies fever/chills, no n/v, no malodor or hematuria. He would like to be evaluated. He notes he had hematuria in Apr 2024. Cardiovascular Invasive Specialist Organization Information for Lam Condon [employer] Legal Name: [facility] Address: [address] [place] [address], [place] [address], Corner Cutter Machine Operator: Ty Camargo MD ALBINA No.: [id number] Cardiovascular Invasive Specialist POC Test Results from Lam Condon Urine [...] .................... .................... .................... .................... .................... .................... . Cardiovascular Invasive Specialist Note From Lam Condon: Pt chief complaint today of urinary symptoms/ abdominal and flank pain. Pt states that he has been feeling these symptoms for the past 4 days prior to his [facility] visit today. Pt notes that he has not been having any foul odor or noticeable blood in his urine as noted the previous time he had an [facility] visit. Pt also notes to have abdominal pain. At a 8/10 mostly I. His left flank and radiating down to his pubis. Pt is primary Mauritanian speaking and states he also is not taking his Atorvastatin regularly as prescribed due to not fully understating the medication. Pt states that he is looking for an assessment today with possible treatment as needed. Pt denies any cp, sob, NVD, dizziness and no changes i. Urinary output or bowel changes. Allergies are noted. Pt notes last [facility] visited noted blood In urine Nonneural focal exam, afebrile, vitals WNL, lungs are clear bilaterally, pt abdomen is assessed and MI note no tenderness, trauma and rigidity. Palpation In the left flank is noted. Urine dip test noted to be negative of leukocytes and nitrates. Culture acquired to be sent to [employer]. No bilateral no lower extremity edema noted. [facility] [place] tash dowell consulted.Pt informed, of urine dip [...] .................... .................... .................... .................... .................... .................... . [facility] [place] Consulted: Tash Dowell .................... .................... .................... .................... .................... .................... .................... . Disposition: Fulfilled Tash Dowell MD [address] [facility],[address], [place], [address], KIRSTIN VARGAS 06/24/2024 20:29:50
== END ==
LOC: HO.CARD 09:17
PROVIDERS: PCP Internal Medicine; Visit Provider Internal Medicine
DX: R07.2 Precordial pain (principal)
CPT/HCPCS: 93017; 93306

== ENCOUNTER → 2024-09-06 09:19 | Outpatient (BNV) | payer OTHER, SELFPAY | PROVIDERS: PCP Internal Medicine | DX: I42.8 Other cardiomyopathies (principal); I36.1 Nonrheumatic tricuspid (valve) insufficiency; R07.2 Precordial pain | CPT/HCPCS: 93016; 93018; 93320; 93325; 93350 ==

== ENCOUNTER 2024-09-20 06:23 | Outpatient (REF) | payer OTHER, SELFPAY ==
--- OUTSIDE RECORDS SUMMARY | 2024-09-20 06:26 | XMS_ITS | Data Portability ---
Author Organization [employer], [employer] Address [address] [place] [address] Care Team Providers Care Utility Sales And Service Manager Name Role Phone HIM CCA OTHER Assessment Encounter Date Assessment Date Assessment LastModified by Organization Details LastModified Time 06/24/2024 06/24/2024 I have reviewed and agree with the assessment and plan as documented by the cook short order. I provided real-time medical direction for this [...] soft, nontender. Exam otherwise unremarkable per the cook short order. U/A negative Impression: Flank pain and urinary [...] recorded. Lab culture, urine 2024 025 K[facility]LA [facility], [address], [place], [address], 21:13:18 urinalysis , dipstick [address] [place] [address], [address] [place] [address], [phone], 19:29:35 Referral None recorded. Procedures None recorded. Surgeries None recorded. Imaging None recorded. Medication Orders None recorded. Patient TargetsNo targets recorded. Patient InstructionsNo instructions recorded. Reason for Referral None Reported. Results Created Date Observation Date Name Description Value Unit Range Abnormal Flag Note LastModifiedBy Organization Detail LastModifiedTime 06/24/1906/27/2024 TEST [facility] question/pro blem: There is a quest ion regar ding the follo wing speci men submi tted and/o r the test reque sted. Not Available [facility] [place], [place], [address], 06/27/2024 21:13:17 06/24/1906/27/2024 [facility] question: VERIFY DOC 06/24/19 ON SPECIM EN Not Available [facility] [place], [place], [address], 06/27/2024 21:13:17 06/24/1906/27/2024 TEST IN [facility] comment REQUE STED INFOR EMMA Vega____ AUTHO RIZED SIGNA TURE_ ____ TO PREVE NT FURTH ER DELAY S IN TESTI GENA GARZA E COMPL ETE INFOR EMMA [employer]ega ABOVE AND FAX TO [phone] OR EMAIL TO Raz Gillis @[facility] tdiag [email or web address] m TO RESOL VE THIS ORDER . Not Available [facility] [address], [address], 06/27/2024 21:13:17 06/24/19 25 06/27/2024 CULTU RE, URINE , ROUTI NE culture SEE NOTE Not Available [facility] [address], [address], 06/27/2024 21:13:18 06/24/19 25 06/28/2024 CULTU RE, URINE , ROUTI NE culture, urine, routine SEE NOTE CULTU RE, URINE , ROUTI NE Micro Numbe r: [id number] Test Statu s: Final Speci men Sourc e: Urine Speci men Quali ty: Adequ ate Resul t: No Growt h Not Available [facility] [address], [address], 06/28/2024 04:42:02 Result Notes None recorded. Medical [...] cm 99 % 99 % 98.2 [degF] 76880.5 76 g 19 /min 65 /min 169 mm[Hg] 89 mm[Hg] Not Available [facility] - production 19:24:36 Social History None recorded. Functional Status None recorded. Mental Status None recorded. Family History Nothing Reported. Medical History No medical history recorded. Past Encounters Encounter ID Performer Location Encounter Start Date Encounter Closed Date Diagnosis/Indication Diagnosis SNOMED-CT Code Diagnosis ICD10 Code Diagnosis Note [id number] Tash Dowell MD Main - [facility] [address] [place] [phone] 06/24/2024 19:24:31 06/24/2024 22:05:02 Urinary symptoms 571821408 R39.9 Health Concerns Section Related Observation LastModified by Organization Detai ls LastModified Time None Recorded Concern Status LastModified by Organization Details LastModified Time None Recorded Advance Directives Directive None Recorded Payers Encounter Date Sequence Insurance Name Policy Number Policy Diaz Covered Member ID Diaz Member ID Guarantor Name 06/24/2024 1 [facility] - DOS ON OR AFTER 2022 - DUAL ELIGIBLE - LONGTERM OPTIONS AND ONE CARE (MEDICARE REPLACEMENT/ADV ANTAGE - HMO) Jin Cordova [id number] Jin Cordova Notes Date Note Type Note [...] (BPH), Hyperlipidemia, Hypertension Comments: Referral taken via [employer], patient calling in to place a referral, identified via name and . Patient with BPH, and ?recurrent UTIs, but doesn't see his urologist until September. He endorses 3-4 days of dysuria and painful urination, frequency, abdominal and flank pain. Denies fever/chills, no n/v, no malodor or hematuria. He would like to be evaluated. He notes he had hematuria in Apr 2024. Victim Witness Administrator Organization Information for Lam Condon [employer] Legal Name: [facility] Address: [address] [place] [address], [place] [address], Dog Sitter: Ty Camargo MD ALBINA No.: [id number] Victim Witness Administrator POC Test Results from Lam Condon Urine [...] .................... .................... .................... .................... .................... .................... . Victim Witness Administrator Note From Lam Condon: Pt chief complaint today of urinary symptoms/ abdominal and flank pain. Pt states that he has been feeling these symptoms for the past 4 days prior to his [facility] visit today. Pt notes that he has not been having any foul odor or noticeable blood in his urine as noted the previous time he had an [facility] visit. Pt also notes to have abdominal pain. At a 8/10 mostly I. His left flank and radiating down to his pubis. Pt is primary Indonesian speaking and states he also is not taking his Atorvastatin regularly as prescribed due to not fully understating the medication. Pt states that he is looking for an assessment today with possible treatment as needed. Pt denies any cp, sob, NVD, dizziness and no changes i. Urinary output or bowel changes. Allergies are noted. Pt notes last [facility] visited noted blood In urine Nonneural focal exam, afebrile, vitals WNL, lungs are clear bilaterally, pt abdomen is assessed and MI note no tenderness, trauma and rigidity. Palpation In the left flank is noted. Urine dip test noted to be negative of leukocytes and nitrates. Culture acquired to be sent to [employer]. No bilateral no lower extremity edema noted. [facility] tash dowell consulted.Pt informed, of urine dip [...] .................... .................... .................... .................... .................... .................... . [facility] Consulted: Tash Dowell .................... .................... .................... .................... .................... .................... .................... . Disposition: Fulfilled Tash Dowell MD [address] [facility],[address], [place], [address], KIRSTIN VARGAS 06/24/2024 20:29:50
[2024-09-20 07:56] LABS: Prostate Specific Antigen 1.25 ng/mL (<0.05-4.0)
== END 2024-09-20 06:24 | disposition home or self-care (01) ==
LOC: HO.LAB 06:23
PROVIDERS: PCP Internal Medicine; Visit Provider Urology
DX: R39.12 Poor urinary stream (principal); N40.1 Benign prostatic hyperplasia with lower urinary tract symptoms; N13.8 Other obstructive and reflux uropathy; Z12.5 Encounter for screening for malignant neoplasm of prostate
CPT/HCPCS: 36415; 84153

== ENCOUNTER 2024-09-22 09:44 | Outpatient (AMB) | payer OTHER, SELFPAY ==
--- NOTE | 2024-09-22 10:07 | A.OFFVIS_ITS ---
Intake Visit Reasons: 1y/PSA Intake Note: Patient presents today for a 1 year follow-up/PSA PSA:1.25 Urology Meds: Tamsulosin & Finasteride Allergies to Antibiotic: No Known Allergies Blood Thinner: None PVR:17ml Curtain Hemmer Automatic Required: Yes Curtain Hemmer Automatic Language: Coremaking Machine Operator Name: MYLES Newton/MARCELO Riley Information Interpreted: non-clinical & clinical Accompanied by: Self / Same As Patient Allergies No Known Allergies [No Known Allergies*] Allergy (Verified 09/22/24 10:08) HPI Comments Details: 09/22/24--Jin is a 67-year-old male who presents today to the office for a follow-up. He was last seen on 03/25/2023 he is being followed for BPH and is prescribed tamsulosin and finasteride. He states he is voiding without difficulty. Denies dysuria or gross hematuria. UA no signs of infection. History of Present Illness The patient is a 69-year-old male presenting with benign prostatic hyperplasia management and prostate cancer screening results. He is under treatment with Tamsulosin and reports no significant urinary symptoms, maintaining good bladder emptying with no hematuria. Blood work, particularly PSA levels, were normal at 1.25, indicating no immediate risk of prostate carcinoma. Urinary Symptoms Review - No blood in urine (hematuria) - Adequate bladder emptying - Controlled urinary symptoms with Tamsulosin Results - Lab: Prostate-Specific Antigen (PSA) level at 1.25, within normal limits Discussion Notes I discussed with the patient that his recent PSA level is well within normal limits, and there is no current need for concern about prostate cancer. We emphasized the importance of regular monitoring due to his condition. I conf irmed the continuation of current medication, Tamsulosin, and introduced Finasteride to manage symptoms of benign prostatic hyperplasia more effectively. The patient agreed to this management plan, and consent was obtained for the continuation and modification of therapy. We also established a follow-up schedule for annual evaluations to monitor his condition. 09/24/23--Jin is a 67-year-old male who presents today to the office for a follow-up. He was last seen on 03/25/2023 he is being followed for BPH and is prescribed tamsulosin and finasteride. He states he is voiding without diffic ulty. Denies dysuria or gross hematuria. UA no signs of infection. PVR 21 mL. Plan to continue proscar and tamsulosin. FU in one PSA screening. 03/25/2023? He is followed today for US results. The patient is a Occitan speaking male. His family member is present and interprets for him. He was last seen by me on 01/09/2023 for BPH. He is using the Finasteride 5mg and Tamsulosin 0.4mg. He complained of dysuria and flank pain, he was prescribed Pyridium 200 mg BID prn and renal US was ordered. I have reviewed the retroperitoneum US results from 03/18/2023 revealed enlarged prostate measuring 111 mL. Mild bladder trabeculation consistent with chronic bladder outlet? physiology. No calculi or focal parenchymal lesions. No hydronephrosis. In discussion today, He states that he is emptying the bladder without any difficutlies. I discussed that there are no kidney stones or other renal pathology and his back pain is likely musculoskeletal related. Evaluation today?UA? leukocytes: negative; blood: negative. Bladder scan PVR 0 mL. Will continue to monitor post-void residual. Continue Finasteride 5 mg, and tamsulosin 0.4 mg. Follow-up in 6 months. 01/09/2023? He is a Occitan speaking male. He niece was present during the visit, who interprets for him. He was previously seen by Dr. Rodriguez on 06/26/2022 for lower urinary tract symptoms. He states that he was treated for LUTS secondary to enlarged prostate. He states that he is taking Finasteride 5mg and Tamsulosin 0.4mg. He mentions having pain secondary to voiding, which is ongoing for 2 weeks. He also reports flank pain at this time. He had PSA done on 05/29/2021 showed 1.59, had another PSA on 08/31/2021 which showed 2.75 and most recent PSA done on 09/08/2022 showed 1.61. Evaluation today UA?01/09/2023 ? leucocytes: negative; blood: negative; PVR bladder scan 53mL. [facility] Medical History (Updated 08/10/24 @ 15:50 by Alfredo Palomares MD) Primary hypertension Palpitations Glaucoma High cholesterol History of snoring Stroke due to embolism Surgical History H/O colonoscopy Hx of brain surgery Family History Father No problems noted. Mother No problems noted. Social History Alcohol intake: current Alcohol intake frequency: does not drink Patient Tobacco Use Status: Never used Tobacco Office Procedures Post Void Residual Post Residual Void Post Void Residual (PVR): 17 [id number]-[id number] Void Residual by ultrasound Results AMB Urinalysis, Automated UA Leukoctes 0 Megha/uL Last Edit by Cadence Sarabia on 09/22/24 14:01 UA Nitrite Negative Last Edit by Cadence Sarabia on 09/22/24 14:01 UA Urobilinogen 0.2 mg/dL Last Edit by Cadence Sarabia on 09/22/24 14:01 UA Protein 0 mg/dL Last Edit by Cadence Sarabia on 09/22/24 14:01 UA pH 6.0 Last Edit by Cadence Sarabia on 09/22/24 14:01 UA Blood 0 Bharat/uL Last Edit by Cadence Sarabia on 09/22/24 14:01 UA Specific [facility] 1.015 Last Edit by Cadence Sarabia on 09/22/24 14:01 UA Ketone Negative Last Edit by Cadence Sarabia on 09/22/24 14:01 UA Bilirubin 0 mg/dL Last Edit by Cadence Sarabia on 09/22/24 14:01 UA Glucose 0 mg/dL Last Edit by Cadence Sarabia on 09/22/24 14:01 Assessment & Plan Assessment & Plan (1) Screening PSA (prostate specific antigen): Code(s): Z12.5 - Encounter for screening for malignant neoplasm of prostate Category: Medical (2) BPH w urinary obs/LUTS: Code(s): N40.1 - Benign prostatic hyperplasia with lower urinary tract symptoms; N13.8 - Other obstructive and reflux uropathy Category: Medical Plan Plan I have decided to continue the patient's treatment with Tamsulosin and add Finasteride to address the benign prostatic hyperplasia symptoms more comprehensively. The patient will continue with annual monitoring of prostate health through PSA testing and physical evaluations. Prescriptions have been adjusted accordingly. Patient Instructions - Continue taking Tamsulosin as prescribed. - Start taking Finasteride as instructed. - Attend follow-up appointments for annual evaluation and PSA testing. - Report any side effects such as dizziness or changes in urinary habits promptly. - Maintain a regular schedule of medication and monitor any changes. Orders: Orders AMB Urinalysis Automated Today Z13.9 - Encounter for screening, unspecified AMB Post Void Residual by ultrasound Today N13.8 - Other obstructive and reflux uropathy, N40.1 - Benign prostatic hyperplasia with lower urinary tract symptoms Medications: Refilled finasteride 5 mg PO DAILY 90 tabs 3RF 90 days N13.8 - Other obstructive and reflux uropathy, N40.1 - Benign prostatic hyperplasia with lower urinary tract symptoms, R33.9 - Retention of urine, unspecified tamsulosin (Flomax) 0.4 mg PO BEDTIME 90 caps 3RF Patient Instructions: The patient had an opportunity to ask questions regarding treatment plan. The patient expressed understanding and agreement with the above treatment plan. The patient is aware they should contact our office by phone for worsening of their current condition or the appearance of new symptoms. Compliance is encouraged with any medications and followup testing that is ordered. It is a privilege to be allowed the opportunity to participate in the urologic care of your patient. If you have any questions or concerns regarding treatment for the above conditions please do not hesitate to contact me. The office telephone contact is [phone]. This note is constructed in part using voice recognition software. While every effort has been made to ensure accuracy professor of communication arts errors may have been included. Yours sincerely, David Stein MD Scribe Plan - Not visible on output: Patient was informed and verbally consented to the use of an ambient scribe for clinic note documentation during this visit. Coding Diagnoses Screening PSA (prostate specific antigen) Z12.5 BPH w urinary obs/LUTS N40.1; N13.8 CPT Codes Post Residual Void - PVR CPT Code: 93496-Gxat Void Residual by ultrasound ([id number])
--- OUTSIDE RECORDS SUMMARY | 2024-09-22 10:14 | XMS_ITS | Data Portability ---
Author Organization [employer] - [employer] Address [address] [place] [address] Care Team Providers Care Lock Setter Name Role Phone HIM CCA OTHER Assessment Encounter Date Assessment Date Assessment LastModified by Organization Details LastModified Time 06/24/2024 06/24/2024 I have reviewed and agree with the assessment and plan as documented by the septic pump truck driver. I provided real-time medical direction for this [...] soft, nontender. Exam otherwise unremarkable per the septic pump truck driver. U/A negative Impression: Flank pain and urinary [...] recorded. Lab culture, urine 2024 025 K[facility], [address], [place], [address], 21:13:18 urinalysis , dipstick [address] [place] [address], [address] [place] [address], [phone], 19:29:35 Referral None recorded. Procedures None recorded. Surgeries None recorded. Imaging None recorded. Medication Orders None recorded. Patient TargetsNo targets recorded. Patient InstructionsNo instructions recorded. Reason for Referral None Reported. Results Created Date Observation Date Name Description Value Unit Range Abnormal Flag Note LastModifiedBy Organization Detail LastModifiedTime 06/24/1906/27/2024 TEST IN [facility] question/pro blem: There is a quest ion regar ding the follo wing speci men submi tted and/o r the test reque sted. Not Available [facility] [place], [place], [address], 06/27/2024 21:13:17 06/24/1906/27/2024 [facility] question: VERIFY DOC 06/24/19 ON SPECIM EN Not Available [facility] [place], [place], [address], 06/27/2024 21:13:17 06/24/1906/27/2024 TEST IN [facility] comment REQUE STED INFOR EMMA Vega____ AUTHO RIZED SIGNA TURE_ ____ TO PREVE NT FURTH ER DELAY S IN TESTI GENA GARZA E COMPL ETE INFOR EMMA Vega ABOVE AND FAX TO [phone] OR EMAIL TO Raz Gillis @[email or web address] m TO RESOL VE THIS ORDER . Not Available [facility] [address], [address], 06/27/2024 21:13:17 06/24/19 25 06/27/2024 CULTU RE, URINE , ROUTI NE culture SEE NOTE Not Available [facility] [address], [address], 06/27/2024 21:13:18 06/24/19 25 06/28/2024 CULTU RE, URINE , ROUTI NE culture, urine, routine SEE NOTE CULTU RE, URINE , ROUTI NE Micro Numbe r: [id number] Test Statu s: Final Speci men Sourc e: Urine Speci men Quali ty: Adequ ate Resul t: No Growt h Not Available [facility] [address], [address], 06/28/2024 04:42:02 Result Notes None recorded. Medical [...] cm 99 % 99 % 98.2 [degF] 41418.5 76 g 19 /min 65 /min 169 mm[Hg] 89 mm[Hg] Not Available [facility] - production 19:24:36 Social History None recorded. Functional Status None recorded. Mental Status None recorded. Family History Nothing Reported. Medical History No medical history recorded. Past Encounters Encounter ID Performer Location Encounter Start Date Encounter Closed Date Diagnosis/Indication Diagnosis SNOMED-CT Code Diagnosis ICD10 Code Diagnosis Note [id number] Tash Dowell MD Main - [facility] [address] [place] [phone] 06/24/2024 19:24:31 06/24/2024 22:05:02 Urinary symptoms 309483907 R39.9 Health Concerns Section Related Observation LastModified by Organization Detai ls LastModified Time None Recorded Concern Status LastModified by Organization Details LastModified Time None Recorded Advance Directives Directive None Recorded Payers Encounter Date Sequence Insurance Name Policy Number Policy Diaz Covered Member ID Diaz Member ID Guarantor Name 06/24/2024 1 [facility] - DOS ON OR AFTER 2022 - DUAL ELIGIBLE - RETIREMENT OPTIONS AND ONE CARE (MEDICARE REPLACEMENT/ADV ANTAGE - HMO) Jin Cordova [id number] Jin Cordova Notes Date Note Type Note [...] (BPH), Hyperlipidemia, Hypertension Comments: Referral taken via Electrode Cleaner, patient calling in to place a referral, identified via name and . Patient with BPH, and ?recurrent UTIs, but doesn't see his urologist until September. He endorses 3-4 days of dysuria and painful urination, frequency, abdominal and flank pain. Denies fever/chills, no n/v, no malodor or hematuria. He would like to be evaluated. He notes he had hematuria in Apr 2024. Manager Investment Banking Organization Information for Lam Condon [employer] Legal Name: [facility] Address: [address] [place] [address], [place] C[place] [id number], [employer] Architect: Ty Camargo MD ALBINA No.: [id number] Manager Investment Banking POC Test Results from Lam Condon Urine [...] .................... .................... .................... .................... .................... .................... . Manager Investment Banking Note From Lam Condon: Pt chief complaint today of urinary symptoms/ abdominal and flank pain. Pt states that he has been feeling these symptoms for the past 4 days prior to his [facility] visit today. Pt notes that he has not been having any foul odor or noticeable blood in his urine as noted the previous time he had an [facility] visit. Pt also notes to have abdominal pain. At a 8/10 mostly I. His left flank and radiating down to his pubis. Pt is primary Bermudian speaking and states he also is not taking his Atorvastatin regularly as prescribed due to not fully understating the medication. Pt states that he is looking for an assessment today with possible treatment as needed. Pt denies any cp, sob, NVD, dizziness and no changes i. Urinary output or bowel changes. Allergies are noted. Pt notes last [facility] visited noted blood In urine Nonneural focal exam, afebrile, vitals WNL, lungs are clear bilaterally, pt abdomen is assessed and MI note no tenderness, trauma and rigidity. Palpation In the left flank is noted. Urine dip test noted to be negative of leukocytes and nitrates. Culture acquired to be sent to [facility]. No bilateral no lower extremity edema noted. [facility] tash dowell consulted.Pt informed, of urine dip [...] .................... .................... .................... .................... .................... .................... . [facility] Consulted: Tash Dowell .................... .................... .................... .................... .................... .................... .................... . Disposition: Fulfilled Tash Dowell MD [address] [facility],[address], [place], [address], KIRSTIN VARGAS 06/24/2024 20:29:50
== END 2024-09-22 10:46 | disposition home or self-care (01) ==
LOC: HO.HUSH 09:44
PROVIDERS: PCP Internal Medicine; Visit Provider Urology
DX: Z13.9 Encounter for screening, unspecified (principal)

== ENCOUNTER → 2024-09-22 09:44 | Outpatient (BNVA) | payer OTHER, SELFPAY | PROVIDERS: PCP Internal Medicine; Visit Provider Urology | DX: N40.1 Benign prostatic hyperplasia with lower urinary tract symptoms (principal); N13.8 Other obstructive and reflux uropathy; R33.8 Other retention of urine; Z79.899 Other long term (current) drug therapy | CPT/HCPCS: 51798; 81003; 99212 ==

== ENCOUNTER 2024-11-01 13:35 | Outpatient (AMB) | payer OTHER, SELFPAY ==
[2024-11-01 13:49] VITALS: BP 120/82; PULSE 67; BMI 22.4
--- NOTE | 2024-11-01 13:49 | MHC.OFFVIS ---
Vital Signs 11/01/24 13:49 Height 5 ft 9 in Weight 151 lb 10.848 oz BMI 22.4 BP 120/82 Blood Pressure Location Lt brachial Position Sitting Pulse 67 Pulse Source Pulse Oximeter Intake Visit Reasons: 3 mth f/up/ echo/stress test Phone Counselor Required: Yes Phone Counselor Language: Molten Iron Pourer Name: voice wood [phone] Allergies No Known Allergies [No Known Allergies*] Allergy (Verified 11/01/24 13:51) Medication List - Last Reconciled 11/01/24 by Farshad Caldwell NP amlodipine 5 mg PO DAILY atorvastatin 20 mg PO BEDTIME finasteride 5 mg PO DAILY 90 days tamsulosin (Flomax) 0.4 mg PO BEDTIME HPI Comments Details: This is a 69-year-old male presenting for a follow-up visit. Patient is Vietnamese-speaking and the construction electrician was used throughout the visit. His medical history includes hypertension and dyslipidemia. He was previously evaluated in the ER for chest pain that woke him up from sleep. He has since undergone a stress test and an echocardiogram. Today, the patient reports that he has not experienced any recurrence of the chest pain and believes it was an isolated episode. He states that he has been doing well overall and denies any further cardiac symptoms including exertional chest pain, shortness of breath, palpitations, dizziness, orthopnea, PND, leg edema, presyncope, or syncope. He confirms compliance with all his prescribed medications. [facility] Medical History Primary hypertension Palpitations Glaucoma High cholesterol History of snoring Stroke due to embolism Surgical History H/O colonoscopy Hx of brain surgery Family History Father No problems noted. Mother No problems noted. Social History Alcohol intake: current Alcohol intake frequency: does not drink Patient Tobacco Use Status: Never used Tobacco Review of Systems ENT Reports dizziness Card Denies chest pain, Denies chest pain at rest, Denies chest pain with activity, Denies rapid heart rate, Denies pedal edema, Denies edema, Denies leg edema, Denies lightheadedness, Denies palpitations, Denies dyspnea, Denies dyspnea on exertion and Denies orthopnea Resp Denies cough, Denies dyspnea and Denies dyspnea on exertion GI Denies hematochezia and Denies change in stool character Musc Denies abnormal gait, Reports limited range of motion, Reports muscle cramps, Denies muscle weakness, Denies numbness, Denies radiating pain into limb, Denies stiffness and Denies tingling Neuro Denies abnormal gait, Reports dizziness, Denies numbness and Denies tingling Endo Denies palpitations Physical Exam Vital Signs: Last Vital Signs Pulse 67 11/01/24 13:49 BP 120/82 11/01/24 13:49 BMI result Body Mass Index 22.4 Const General: cooperative, healthy appearing, comfortable and no acute distress Orientation/consciousness: patient oriented x3 HEENT Head: Yes normal to inspection Neck Neck: Yes normal visual inspection, Yes trachea midline and Yes supple Chest Chest palpation & inspection: normal inspection of the chest Resp Effort & Inspection: normal respiratory effort Auscultation: clear to auscultation bilaterally, no crackles, no rales, no rhonchi and no wheezes Cardio Jugular venous distension: no JVD Palpation: normal PMI Rate: regular rate Rhythm: regular rhythm Heart sounds: S1 normal heart sound present, S2 normal heart sound present, no click, no gallops, no murmurs and no rubs Peripheral pulses: Peripheral pulses 2+ throughout GI Inspection: Yes normal to inspection Palpation (GI): Soft to palpation Auscultation: normal bowel sounds Skin General skin exam: no rashes or lesions noted Neuro General: patient oriented x3 Extrem General: Yes normal to inspection, No no pedal edema and No calf tenderness Psych Appearance: grossly normal Mental Status: mental status grossly normal Speech and movement: Normal speech and movement present Assessment & Plan Assessment & Plan (1) Primary hypertension: Code(s): I10 - Essential (primary) hypertension Category: Medical (2) RBBB: Code(s): I45.10 - Unspecified right bundle-branch block Category: Medical (3) Dyslipidemia: Code(s): E78.5 - Hyperlipidemia, unspecified Plan 09/06/2024-patient underwent a stress test with moderate workload, without any anginal symptoms as well as no EKG changes. 09/06/2024-echo study showed a low-normal EF 50-55% with impaired relaxation filling pattern. Patient's chest pain episode appears to be has been isolated and there has been no recurrent symptoms. Given above findings, no further testing indicated at this time. Blood pressure today is well-controlled. Advised to monitor blood pressures at home and maintain a log. Ideally, blood pressure goal less than 130/80. We will a start low-dose metoprolol therapy. We will repeat echo in 6 months. We will monitor labs periodically. No recent LDL measurement. Continue statin therapy. We will repeat lipid panel with a target LDL closer to 70. Advised heart healthy diet, regular exercise, and med compliance. Follow up in 6 months. In the interim, patient will call the office with any concerns or change in symptoms. This note was generated using voice recognition software. While every effort has been made to ensure accuracy and proper piano sounding board matcher, there may be occasional errors that could affect the content or meaning of the described symptoms. Orders: Orders Basic Metabolic Panel 3 Months I10 - Essential (primary) hypertension Lipid Panel 3 Months I10 - Essential (primary) hypertension Liver Panel 3 Months I10 - Essential (primary) hypertension CA echo transthoracic complete 6 Months I10 - Essential (primary) hypertension Medications: New metoprolol succinate ER 25 mg PO DAILY 90 tabs 3RF Coding Level of Care Code Est Pt Level 4 (80636) Complex EM visit Add On G2211 Diagnoses Primary hypertension I10 RBBB I45.10 Dyslipidemia E78.5 Time Spent (min) 32 Comment Time spent in reviewing the chart, test results, assessment, counseling and documentation.
--- OUTSIDE RECORDS SUMMARY | 2024-11-01 14:42 | XMS_ITS | Data Portability ---
Author Organization [employer], [employer] in - [employer] Address [address] [place] [address] Care Team Providers Care Child Guidance Counselor Name Role Phone HIM CCA OTHER Assessment Encounter Date Assessment Date Assessment LastModified by Organization Details LastModified Time 06/24/2024 06/24/2024 I have reviewed and agree with the assessment and plan as documented by the lumber sales supervisor. I provided real-time medical direction for this [...] soft, nontender. Exam otherwise unremarkable per the lumber sales supervisor. U/A negative Impression: Flank pain and urinary [...] recorded. Lab culture, urine 2024 025 KAYLA [facility], [address] [place] [address], [place], [address], 21:13:18 urinalysis , dipstick [address] [place] [address], [phone] 19:29:35 Referral None recorded. Procedures None recorded. Surgeries None recorded. Imaging None recorded. Medication Orders None recorded. Patient TargetsNo targets recorded. Patient InstructionsNo instructions recorded. Reason for Referral None Reported. Results Created Date Observation Date Name Description Value Unit Range Abnormal Flag Note LastModifiedBy Organization Detail LastModifiedTime 06/24/1906/27/2024 [facility] question/pro blem: There is a quest ion regar ding the follo wing speci men submi tted and/o r the test reque sted. Not Available [facility] [place], [address], 06/27/2024 21:13:17 06/24/19 25 06/27/2024 [facility] question: VERIFY DOC 06/24/19 ON SPECIM EN Not Available [facility] [place], [address], 06/27/2024 21:13:17 06/24/19 25 06/27/2024 [facility] comment REQUE STED INFOR EMMA Vega____ AUTHO RIZED SIGNA TURE_ ____ TO PREVE NT FURTH ER DELAY S IN TESTI GENA GARZA E COMPL ETE INFOR EMMA Vega ABOVE AND FAX TO [phone] OR EMAIL TO Raz Gillis [email or web address] m TO RESOL VE THIS ORDER . Not Available [facility] [address], [place], [address], 06/27/2024 21:13:17 06/24/19 25 06/27/2024 CULTU RE, URINE , ROUTI NE culture SEE NOTE Not Available [facility] [address], [place], [address], 06/27/2024 21:13:18 06/24/19 25 06/28/2024 CULTU RE, URINE , ROUTI NE culture, urine, routine SEE NOTE CULTU RE, URINE , ROUTI NE Micro Numbe r: [id number] Test Statu s: Final Speci men Sourc e: Urine Speci men Quali ty: Adequ ate Resul t: No Growt h Not Available [facility] [address], [place], [address], 06/28/2024 04:42:02 Result Notes None recorded. Medical [...] cm 99 % 99 % 98.2 [degF] 82209.5 76 g 19 /min 65 /min 169 mm[Hg] 89 mm[Hg] Not Available [facility] - production 19:24:36 Social History None recorded. Functional Status None recorded. Mental Status None recorded. Family History Nothing Reported. Medical History No medical history recorded. Past Encounters Encounter ID Performer Location Encounter Start Date Encounter Closed Date Diagnosis/Indication Diagnosis SNOMED-CT Code Diagnosis ICD10 Code Diagnosis Note [id number] Tash Dowell MD Main - [facility] [address] [place] [phone] 06/24/2024 19:24:31 06/24/2024 22:05:02 Urinary symptoms [id number] R39.9 Health Concerns Section Related Observation LastModified by Organization Detai ls LastModified Time None Recorded Concern Status LastModified by Organization Details LastModified Time None Recorded Advance Directives Directive None Recorded Payers Insurance Date Sequence Insurance Name Policy Number Policy Diaz Covered Member ID Diaz Member ID Guarantor Name 06/24/2024 1 [facility] - DOS ON OR AFTER 2022 - DUAL ELIGIBLE - INTERMEDIATE OPTIONS AND ONE CARE (MEDICARE REPLACEMENT/ADV ANTAGE - HMO) Jin Cordova [id number] Jin Cordova Notes Date Note Type Note [...] (BPH), Hyperlipidemia, Hypertension Comments: Referral taken via Vegetable Handler, patient calling in to place a referral, identified via name and . Patient with BPH, and ?recurrent UTIs, but doesn't see his urologist until September. He endorses 3-4 days of dysuria and painful urination, frequency, abdominal and flank pain. Denies fever/chills, no n/v, no malodor or hematuria. He would like to be evaluated. He notes he had hematuria in Apr 2024. Underground Heavy Equipment Operator Organization Information for Lam Condon [employer] Legal Name: [facility] Address: [address] [place] [address], [place] [address], Promotions Representative: Ty Camargo MD [facility] No.: [id number] Underground Heavy Equipment Operator POC Test Results from Lam Condon Urine [...] .................... .................... .................... .................... .................... .................... . Underground Heavy Equipment Operator Note From Lam Condon: Pt chief complaint today of urinary symptoms/ abdominal and flank pain. Pt states that he has been feeling these symptoms for the past 4 days prior to his [facility] visit today. Pt notes that he has not been having any foul odor or noticeable blood in his urine as noted the previous time he had an [facility] visit. Pt also notes to have abdominal pain. At a 8/10 mostly I. His left flank and radiating down to his pubis. Pt is primary Greenlandic speaking and states he also is not taking his Atorvastatin regularly as prescribed due to not fully understating the medication. Pt states that he is looking for an assessment today with possible treatment as needed. Pt denies any cp, sob, NVD, dizziness and no changes i. Urinary output or bowel changes. Allergies are noted. Pt notes last [facility] visited noted blood In urine Nonneural focal exam, afebrile, vitals WNL, lungs are clear bilaterally, pt abdomen is assessed and [facility] note no tenderness, trauma and rigidity. Palpation In the left flank is noted. Urine dip test noted to be negative of leukocytes and nitrates. Culture acquired to be sent to [facility]. No bilateral no lower extremity edema noted. [facility] tash dowell consulted.Pt informed, of urine dip [...] .................... .................... .................... .................... .................... .................... . [facility] Consulted: Tash Dowell .................... .................... .................... .................... .................... .................... .................... . Disposition: Fulfilled Tash Dowell MD [address] [place] [address],[address], [place], [phone], KIRSTIN VARGAS 06/24/2024 20:29:50
== END 2024-11-01 14:25 | disposition home or self-care (01) ==
LOC: HO.HCS 13:36
PROVIDERS: PCP Internal Medicine
DX: I10 Essential (primary) hypertension (principal); I45.10 Unspecified right bundle-branch block; E78.5 Hyperlipidemia, unspecified
CPT/HCPCS: 99214; G2211

== ENCOUNTER → 2024-11-01 13:35 | Outpatient (BNVA) | payer OTHER, SELFPAY | PROVIDERS: PCP Internal Medicine | DX: I45.10 Unspecified right bundle-branch block (principal); I10 Essential (primary) hypertension; E78.5 Hyperlipidemia, unspecified | CPT/HCPCS: 99212 ==

== ENCOUNTER → 2025-05-04 09:06 | Outpatient (REF) | payer OTHER, SELFPAY ==
--- NOTE | 2025-05-04 09:12 | CA_ITS ---
Transthoracic Echocardiogram Patient (Last, First, Middle): Jin Villegas A Gender: M Date of : 1955 Age: 69 Procedure Date: 05/04/2025 Procedure Type: Transthoracic Echocardiogram Location: OP Height: 175.26 cm Weight: 68.49 kg BSA: 1.83 m2 Heart Rate: bpm BP: 120 / 82 mmHg Dynamic Balancer Set Up Worker: ABEL Referring MD: Farshad Caldwell JOB TRACER Tool And Die Maker/Designer: Segundo Dhillon MD Symptoms: I10 - Essential (primary) hypertension Study Quality: Fair ECG Rhythm: Sinus with extra beats Conclusions: - 1. Normal LV ejection fraction of 55-60% 2. Normal cardiac valvular Dopplers 3. Normal RV systolic pressure 4. No gross pericardial effusion Findings Left Ventricle Normal left ventricular size, thickness, and systolic function. The visually estimated ejection fraction is between 55-60%. Spectral Doppler is indicative of an impaired relaxation filling pattern. E/E prime ratio is <8, consistent with normal filling pressures. Evidence suggests grade I (mild) diastolic dysfunction. Right Ventricle Normal right ventricular cavity size and systolic function. Atria Both atria are normal in size. There is no evidence of interatrial shunt. Aortic Valve Normal aortic valve structure and function. There is no aortic valve stenosis. There is no aortic valve regurgitation. Mitral Valve Normal mitral valve structure and function. There is trace mitral valve regurgitation. There is no mitral valve stenosis. Pulmonic Valve The pulmonic valve is likely normal. Tricuspid Valve Normal tricuspid valve structure. There is trace tricuspid valve regurgitation. The right ventricular systolic pressure is normal. The right ventricular systolic pressure is 23 mmHg. Normal right atrial pressure. There is no evidence of pulmonary hypertension. Great Vessels All visible segments of the aorta are normal in size. The pulmonary artery was not well visualized. There is no dilatation of the ascending aorta measuring 3.60 cm. Venous The inferior vena cava is normal in size and collapses greater than 50% with inspiration. Pericardium/Pleural There is no evidence of pericardial effusion. Prior Study Comparison Changes noted compared to prior study dated: 09/06/2024. LV function is marginally improved Measurements 2D Linear Measurements IVSd: 0.88 0.6-0.9/0.6-1.0 cm LVIDd: 5.33 3.9-5.3/4.2-5.9 cm LVIDd Index: 2.91 2.4-3.2/2.2-3.1 cm/m2 LVIDs: 3.11 2.0-3.6 cm LVPWd: 0.80 0.7-1.1 cm LA Diam: 2.50 2.7-3.8/3.0-4.0 cm LAIDs Index: 1.37 1.5-2.3 cm/m2 LV Mass: 200.62 67-162/88-224 g LV Mass Index: 109.63 43-95/49-115 g/m2 LVOT Diam: 1.90 3.0+(-)1.3 cm 2D Systolic Function EF 4C: 59.10 >55% EF 2C: 58.00 >55% EF BiP: 58.90 >55% Mitral Valve MV Pk E: 0.78 MV PK A: 0.95 MV Decel Time: 270.00 E/A: 0.80 E'Lateral: 8.35 E'Medial: 6.72 E/E' Med: 11.60 E/E' Lat: 9.30 PHT: 79.00 MVA PHT: 2.78 Decel Heard: 3.09 Aortic Valve AoV Pk Regan: 1.62 AoV Mn Regan: 1.06 AoV VTI: 0.36 AoV Pk Grad: 10.00 Aov Mn Grad: 5.00 GE Cont.VTI: 1.82 LVOT LVOT Pk Regan: 0.95 LVOT Mn Regan: 0.66 LVOT VTI: 0.23 LVOT Pk Grad: 4.00 LVOT Mn Grad: 2.00 LVOT Diam: 1.90 LVOT Area: 2.84 Diastolic Function MV Pk E: 0.78 MV Pk A: 0.95 E/A: 0.80 E'Medial: 6.72 E/E' Med: 11.60 E' Laterial: 8.35 E/E' Lat: 9.30 Right Ventricle TAPSE (mm): 21.80 TVS' Regan: 12.20 Tricuspid Valve TR Pk Regan: 2.23 TR Pk Grad: 20.00 RA Press: 3.00 RVSP: 23.00 Great Vessels Aorta Sinus of Valsalva: 3.20 2.0-3.[address] Ridge: 2.42 1.7-3.4 cm Ao Asc: 3.60 2.1-3.4 cm Pulmonary Veins Pulm Vein S/D 1.60 Updated in Other Vendor System with Status of Final Segundo Dhillon MD electronically signed on 05/04/2025 5:58:56 PM with status of Final
== END ==
LOC: HO.CARD 09:06
DX: I10 Essential (primary) hypertension (principal)
CPT/HCPCS: 93306

== ENCOUNTER → 2025-05-04 09:12 | Outpatient (BNV) | payer OTHER, SELFPAY | PROVIDERS: Visit Provider Internal Medicine Cardiovascular Disease | DX: I51.89 Other ill-defined heart diseases (principal); I10 Essential (primary) hypertension | CPT/HCPCS: 93306 ==

== ENCOUNTER 2025-05-16 12:41 | Outpatient (AMB) | payer OTHER, SELFPAY ==
[2025-05-16 12:51] VITALS: BP 122/70; PULSE 71; BMI 22.3
--- NOTE | 2025-05-16 12:51 | MHC.OFFVIS ---
Vital Signs 05/16/25 12:51 Height 5 ft 9 in Weight 150 lb 12.739 oz BMI 22.3 BP 122/70 Blood Pressure Location Lt brachial Position Sitting Pulse 71 Pulse Source Pulse Oximeter Intake Visit Reasons: 6 mth s/p echo Commercial Loan Collection Officer Required: Yes Commercial Loan Collection Officer Services: Commercial Loan Collection Officer Present Commercial Loan Collection Officer Name: Tanika Denis [id number] Information Interpreted: non-clinical & clinical Accompanied by: Self / Same As Patient Allergies No Known Allergies (No Known Allergies*) Allergy (Verified 05/16/25 12:53) HPI Comments Details: This is a 69-year-old male patient coming in for a follow-up visit. A order fulfillment specialist was used throughout the visit. Patient with a history of hypertension and hyperlipidemia who was previously seen in the office for chest pain for which patient underwent a stress test and an echocardiogram revealing a low-normal or function. Patient has repeated an echocardiogram and is reporting feeling well overall without any cardiac symptoms of exertional chest pain, shortness of breath, palpitations, dizziness, orthopnea, PND, leg edema, presyncope or syncope. Patient is reporting compliance with all his medications. [facility] Medical History Primary hypertension Palpitations Glaucoma High cholesterol History of snoring Stroke due to embolism Surgical History H/O colonoscopy Hx of brain surgery Family History Father No problems noted. Mother No problems noted. Social History Alcohol intake: current Alcohol intake frequency: does not drink Patient Tobacco Use Status: Never used Tobacco Review of Systems Const Denies daytime sleepiness, Denies difficulty sleeping, Denies snoring, Denies stops breathing during sleep and Denies weakness Card Denies chest pain, Denies rapid heart rate, Denies irregular heart rhythm, Denies claudication, Denies leg edema, Denies lightheadedness, Denies palpitations, Denies dyspnea, Denies dyspnea on exertion, Denies orthopnea, Denies paroxysmal nocturnal dyspnea and Denies slow heart rate Resp Denies cough, Denies dyspnea, Denies dyspnea on exertion and Denies snoring GI Reports no additional complaints, Denies hematochezia, Denies change in stool character and Denies dyspepsia Musc Denies abnormal gait, Denies muscle weakness and Denies numbness Neuro Denies abnormal gait, Denies numbness and Denies weakness Endo Denies palpitations Physical Exam Vital Signs: Last Vital Signs Pulse 71 05/16/25 12:51 BP 122/70 05/16/25 12:51 BMI result Body Mass Index 22.3 Const General: cooperative, healthy appearing, comfortable and no acute distress Orientation/consciousness: patient oriented x3 HEENT Head: Yes normal to inspection Neck Neck: Yes normal visual inspection, Yes trachea midline and Yes supple Chest Chest palpation & inspection: normal inspection of the chest Resp Effort & Inspection: normal respiratory effort Auscultation: clear to auscultation bilaterally, no crackles, no rales, no rhonchi and no wheezes Cardio Jugular venous distension: no JVD Palpation: normal PMI Rate: regular rate Rhythm: regular rhythm Heart sounds: S1 normal heart sound present, S2 normal heart sound present, no click, no gallops, no murmurs and no rubs Peripheral pulses: Peripheral pulses 2+ throughout GI Inspection: Yes normal to inspection Palpation (GI): Soft to palpation Auscultation: normal bowel sounds Skin General skin exam: no rashes or lesions noted Neuro General: patient oriented x3 Extrem General: Yes normal to inspection, No no pedal edema and No calf tenderness Psych Appearance: grossly normal Mental Status: mental status grossly normal Speech and movement: Normal speech and movement present Assessment & Plan Assessment & Plan (1) Primary hypertension: Code(s): I10 - Essential (primary) hypertension Category: Medical (2) RBBB: Code(s): I45.10 - Unspecified right bundle-branch block Category: Medical (3) Dyslipidemia: Code(s): E78.5 - Hyperlipidemia, unspecified Category: Medical Plan 09/06/2024-patient underwent a stress test with moderate workload, without any anginal symptoms as well as no EKG changes. 05/04/2025-echo study showed a normal LV systolic function with an ejection fraction between 55-60%, grade 1 diastolic dysfunction. Given above findings and no cardiac symptoms, no further indication for testing at this time. Blood pressure today is well-controlled. Continue current regimen of blood pressure with a goal of blood pressure less than 130/80. Advised on low-salt diet. Continue statin therapy with an LDL goal closer to 70. Patient is following this with PCP. Advised on heart healthy diet, regular exercise, med compliance, and management of vascular risk factors. Follow up on an as-needed basis. In the interim, patient will call the office with any concerns or change in symptoms. Advised to seek ER care in case of exertional chest pain not resolved with rest. This note was generated using voice recognition software. While every effort has been made to ensure accuracy and proper automation clerk, there may be occasional errors that could affect the content or meaning of the described symptoms. Coding Level of Care Code Est Pt Level 3 (46615) Complex visit Add On G2211 Diagnoses Primary hypertension I10 RBBB I45.10 Dyslipidemia E78.5 Time Spent (min) 29 Comment Time spent in reviewing the chart, test results, assessment, counseling and documentation.
== END 2025-05-16 13:11 | disposition home or self-care (01) ==
LOC: HO.HCS 12:41
PROVIDERS: PCP Internal Medicine
DX: I10 Essential (primary) hypertension (principal); I45.10 Unspecified right bundle-branch block; E78.5 Hyperlipidemia, unspecified
CPT/HCPCS: 99213; G2211

== ENCOUNTER → 2025-05-16 12:41 | Outpatient (BNVA) | payer OTHER, SELFPAY | PROVIDERS: PCP Internal Medicine | DX: E78.5 Hyperlipidemia, unspecified (principal); I45.10 Unspecified right bundle-branch block; I10 Essential (primary) hypertension; Z79.899 Other long term (current) drug therapy | CPT/HCPCS: 99212 ==